=== PATIENT | male | born 1930 | race Caucasian/White ===

== ENCOUNTER 2020-09-05 11:31 | Inpatient (IN) | payer MEDICARE, OTHER ==
[2020-09-05] MEDS: SODIUM CHLORIDE 0.9% 1,000 ML IV STA ×2 (12:49→16:17)
[2020-09-05 13:12] LABS: Basophils # (A) 0.1 k/uL (0-0.2); Basophils % (A) 1 %; Eosinophils # (A) 0.3 k/uL (0-0.7); Eosinophils % (A) 3 %; HCT 44.5 % (39.0-53.0); HGB 15.1 gm/dL (13.0-17.5); Lymphocytes # (A) 1.3 k/uL (1.0-4.8); Lymphocytes % (A) 13 %; MCH 30.7 pg (25.0-35.0); MCV 90.3 fL (80.0-100.0); Mean Platelet Volume 7.7; Monocytes # (A) 0.6 k/uL (0-1.0); Monocytes % (A) 6 %; Neutrophils # (A) 7.3 k/uL (1.3-7.7); Neutrophils % (A) 76 %; Platelet Count 250 k/uL (150-450); RBC 4.93 m/uL (4.30-5.90); RDW 13.2 % (11.5-15.5); WBC 9.6 k/uL (3.8-10.6)
[2020-09-05 13:39] LABS: Albumin 3.4 g/dL (3.5-5.0); Calcium 10.4 mg/dL (8.4-10.2); Potassium 5.4 mmol/L (3.5-5.1); Total Bilirubin 1.2 mg/dL (0.2-1.3); Total Protein 6.6 g/dL (6.3-8.2)
[2020-09-05 14:01] LABS: INR 0.9 (<1.2); Partial Thromboplastin Time 22.3 sec (22.0-30.0); Prothrombin Time 9.9 sec (9.0-12.0)
--- NOTE | 2020-09-05 14:31 | CT ---
EXAMINATION TYPE: CT abdomen pelvis wo con DATE OF EXAM: 09/05/2020 COMPARISON: None HISTORY: Abdominal pain where tube site drains CT DLP: 1088.2 mGycm Examination of the solid and hollow viscera is limited given the lack of contrast. FINDINGS: LUNG BASES: No evidence for nodule. No evidence for infiltrate. LIVER/GB: Pigtail catheter noted to extend into the region of the gallbladder fossa. No evidence for abnormal collection. The gallbladder surgically absent. No space-occupying hepatic lesion. PANCREAS: No pancreatic mass identified. No inflammatory process seen. SPLEEN: No evidence for splenomegaly. No intrasplenic lesions seen. ADRENALS: No adrenal nodules identified. No evidence for thickening. KIDNEYS: No evidence for renal mass. No nephrolithiasis. No hydronephrosis. BOWEL: Appendix has a normal appearance. No evidence of bowel obstruction. No inflammatory process. S evere sigmoid diverticulosis without diverticulitis. Lymph nodes: No evidence for adenopathy greater than 1 cm. Abdominal aorta: Atheromatous changes seen. No evidence for aneurysm. Genital organs: No significant abnormality. Other: Right inguinal hernia which contains a portion of the urinary bladder. Ulnar fat-containing le ft inguinal hernia. IMPRESSION: 1.Pigtail catheter noted to extend into the region of the gallbladder fossa. No evidence for abnormal collection. The gallbladder surgically absent. 2.Right inguinal hernia which contains a portion of the urinary bladder. Ulnar fat-containing left in guinal hernia.
[2020-09-05] MEDS ORDERED: ONDANSETRON 4 MG/2 ML VIAL IVP PRN (14:55)
[2020-09-05] MEDS ORDERED: NALOXONE 0.4 MG/ML 1 ML VIAL IV PRN ×2 (14:55→16:25)
--- NOTE | 2020-09-05 14:55 | ED ---
General Adult HPI - General Chief complaint: Recheck/Abnormal Lab/Rx Stated complaint: pain at drainage tube site Time Seen by Provider: 09/05/20 12:08 Source: patient, RN notes reviewed Mode of arrival: wheelchair Limitations: no limitations - History of Present Illness Initial comments: Patient 89-year-old male presenting to the emergency room today with a chief complaint of right upper quadrant pain. He is met that approximately 3 weeks ago he was seen at [facility]. He does admit that he was told that he had a problem with his gallbladder. A drain was placed in because he was planning to move from the [facility] to this area. Patient states that they placed this drain to try to prolong surgery. Patient does admit that he has moved and was planning to follow with Dr. Quarles here. He does admit that over the last week she's been having increased pain and difficult time eating and drinking. He does admit that the pain is worse with this. He denies any other complaints or symptoms. Patient denies any recent fever, chills, shortness of breath, chest pain, back pain, abdominal pain, nausea or vomiting, headaches or visual changes, or any other complaints. - Related Data Home Medications Medication Instructions Recorded Confirmed Atorvastatin [Lipitor] 40 mg PO DAILY 09/05/20 09/05/20 Clopidogrel [Plavix] 75 mg PO DAILY 09/05/20 09/05/20 Montelukast [Singulair] 10 mg PO DAILY 09/05/20 09/05/20 Omeprazole 20 mg PO DAILY 09/05/20 09/05/20 amLODIPine [Norvasc] 5 mg PO DAILY 09/05/20 09/05/20 hydrOXYzine HCL [Atarax] 25 - 50 mg PO HS PRN 09/05/20 09/05/20 Allergies Allergy/AdvReac Type Severity Reaction Status Date / Time No Known Allergies Allergy Verified 09/05/20 13:51 Review of Systems ROS Statement: Those systems with pertinent positive or pertinent negative responses have been documented in the HPI. ROS Other: All systems not noted in ROS Statement are negative. Past Medical History Past Medical History: Hyperlipidemia, Hypertension, Pulmonary Embolus (PE) History of Any Multi-Drug Resistant Organisms: None Reported Additional Past Surgical History / Comment(s): drainage tube to gallbladder Past Psychological History: No Psychological Hx Reported Smoking Status: Former smoker Past Alcohol Use History: None Reported Past Drug Use History: None Reported General Exam - General Exam Comments Initial Comments: General: The patient is awake and alert, in no distress, and does not appear acutely ill. Eye: extra-ocular movements are intact. There is normal conjunctiva bilaterally. No signs of icterus. Ears, nose, mouth and throat: There are moist mucous membranes and no oral lesions. Neck: The neck is supple, there is no tenderness or JVD. Cardiovascular: There is a regular rate and rhythm. No murmur, rub or gallop is appreciated. Respiratory: Lungs are clear to auscultation, respirations are non-labored, breath sounds are equal. No wheezes, stridor, rales, or rhonchi. Gastrointestinal: Patient does have drain in the right upper quadrant. He does have some mild tenderness locally. No rebound, guarding. Musculoskeletal: Normal ROM, no tenderness. Strength 5/5. Sensation intact. Pulses equal bilaterally 2+. Neurological: A&O x 3. CN II-XII intact, There are no obvious motor or sensory deficits. Coordination appears grossly intact. Speech is normal. Skin: Skin is warm and dry and no rashes or lesions are noted. Psychiatric: Cooperative, appropriate mood & affect, normal judgment. Limitations: no limitations Course Vital Signs 09/05/20 11:36 Temperature 98.2 F Pulse Rate 97 Respiratory 18 Rate Blood Pressure 134/70 O2 Sat by Pulse 95 Oximetry Medical Decision Making - Medical Decision Making CT has been reviewed. This does show evidence of draining no gallbladder is visualized at this time. He does believe that he had previous scans that showed that he needed to have a gallbladder taken out and this is the reason that the place to drain. Patient labs been reviewed and does show elevated BUN/creatinine. Patient is having a difficult time eating and drinking at home as is increased pain due eats and drinks. He'll be admitted with consult to surgery. - Lab Data Result diagrams: 09/05/20 12:43 09/05/20 12:43 Lab Results 09/05/20 09/05/20 09/05/20 Range/Units 12:43 12:43 12:43 WBC 9.6 (3.8-10.6) k/uL RBC 4.93 (4.30-5.90) m/uL Hgb 15.1 (13.0-17.5) gm/dL Hct 44.5 (39.0-53.0) % MCV 90.3 (80.0-100.0) fL MCH 30.7 (25.0-35.0) pg MCHC 34.0 (31.0-37.0) g/dL RDW 13.2 (11.5-15.5) % Plt Count 250 (150-450) k/uL MPV 7.7 Neutrophils % 76 % Lymphocytes % 13 % Monocytes % 6 % Eosinophils % 3 % Basophils % 1 % Neutrophils # 7.3 (1.3-7.7) k/uL Lymphocytes # 1.3 (1.0-4.8) k/uL Monocytes # 0.6 (0-1.0) k/uL Eosinophils # 0.3 (0-0.7) k/uL Basophils # 0.1 (0-0.2) k/uL PT 9.9 (9.0-12.0) sec INR 0.9 (<1.2) APTT 22.3 (22.0-30.0) sec Sodium 138 (137-145) mmol/L Potassium 5.4 H (3.5-5.1) mmol/L Chloride 103 (98-107) mmol/L Carbon Dioxide 28 (22-30) mmol/L Anion Gap 7 mmol/L BUN 23 H (9-20) mg/dL Creatinine 1.75 H (0.66-1.25) mg/dL Est GFR (CKD-EPI)AfAm 39 (>60 ml/min/1.73 sqM) Est GFR (CKD-EPI)NonAf 34 (>60 ml/min/1.73 sqM) Glucose 119 H (74-99) mg/dL Calcium 10.4 H (8.4-10.2) mg/dL Total Bilirubin 1.2 (0.2-1.3) mg/dL AST 23 (17-59) U/L ALT 22 (4-49) U/L Alkaline Phosphatase 106 (38-126) U/L Total Protein 6.6 (6.3-8.2) g/dL Albumin 3.4 L (3.5-5.0) g/dL Amylase 75 (30-110) U/L Lipase 87 (23-300) U/L Disposition Clinical Impression: Abdominal pain, LIYA (acute kidney injury) Disposition: ADMITTED IP TO THIS HOSP Condition: Stable Is patient prescribed a controlled substance at d/c from ED?: No Referrals: None,Stated [Primary Care Provider] - 1-2 days Time of Disposition: 14:55
[2020-09-05] MEDS ORDERED: SODIUM CHLORIDE 0.9% 1,000 ML IV SCH (15:00)
[2020-09-05] MEDS ORDERED: hydrOXYzine HCL 25 MG TAB PO PRN (15:46)
[2020-09-05] MEDS ORDERED: MELATONIN 3 MG TABLET PO PRN (16:31)
[2020-09-05 16:34] LABS: Appearance,Urine Clear (Clear); Bilirubin,Urine Negative (Negative); Blood,Urine Negative (Negative); Color,Urine Yellow; Glucose,Urine (UA) Negative (Negative); Hyaline Casts,Urine 1 /lpf (0-2); Ketones,Urine Negative (Negative); Leukocyte Esterase,Urine Trace (Negative); Mucus,Urine Rare /hpf; Nitrite,Urine Negative (Negative); Protein,Urine 1+ (Negative); RBC,Urine 1 /hpf (0-5); Specific Gravity,Urine 1.021 (1.001-1.035); Squamous Epithelial Cell,Urine <1 /hpf (0-4); Urobilinogen,Urine <2.0 mg/dL (<2.0); WBC,Urine 5 /hpf (0-5)
--- NOTE | 2020-09-05 16:55 | P.HPIM ---
<Elijah Conti - Last Filed: 09/05/20 16:36> History of Present Illness H&P Date: 09/05/20 Chief Complaint: Abdominal Pain History of presenting illness: Patient is an 89-year-old male with a past medical history including hypertension, hyperlipidemia, PE not currently on anticoagulation, CVA on Plavix, and CKD. He presented to [facility]'s emergency department this afternoon with a chief complaint of right upper quadrant pain. Patient reports that approximately 3 weeks ago he was seen and evaluated at [facility] where he was informed that he had to have his gallbladder removed, but they were not able to do this there and needed to transfer him to another facility. Patient states at that time a drain was placed and since patient was in the process of moving to this area, he was instructed to follow-up with Dr. Del Castillo and has an appointment scheduled for September 13. Patient states the drain was placed to prolong the surgery, but states over the last week he's been having increased pain, a difficult time eating and drinking, nausea, and diarrhea. Patient reports this pain significantly increases with any oral intake. Patient denies having any noted fevers, chills, diaphoresis, episodes of vomiting, chest pain or palpitations, shortness of breath, difficulties with her changes in urinary function, and reports continued drainage from radha-tube/biliary-tube has been unchanged since placement 3 weeks ago. ED course: Patient was seen and fully evaluated in the emergency department resulting in admission to general medical unit where patient will receive continuous close medical management. CT abdomen and pelvis without contrast revealing a pigtail catheter noted to extend into the region of the gallbladder fossa no evidence for abnormal collection. The gallbladder surgically absent. Right inguinal hernia which contains a portion of the urinary bladder. On her fat-containing left inguinal hernia. Labs: CBC unremarkable. CMP revealing mild hyperkalemia with potassium of 5.4 and elevated renal function with BUN of 23, creatinine of 1.75 Assessment: Review of systems: Pertinent positives and negatives as discussed in HPI, a complete review of systems was performed and all other systems are negative. Physical exam: General: non toxic, no distress, appears at stated age Derm: warm, dry Head: atraumatic, normocephalic, symmetric Eyes: no lid lag, anicteric sclera Mouth: no lip lesion, mucus membranes moist Cardiovascular: S1S2 reg, murmur present, positive posterior tibial pulses bilaterally, 2+ bilateral lower extremity pitting edema. Lungs: CTA bilateral, no rhonchi, no rales , no accessory muscle use Abdominal: Obese abdomen, taught distended with tenderness to palpation throughout all 4 quadrants with guarding to right upper quadrant. Biliary drain in place with 150 mL of dark brown gastric drainage. Ext: no gross muscle atrophy, no contractures Neuro: CN II-XI grossly intact, no focal neuro deficits Psych: Alert, oriented, appropriate affect Plan of care: Right upper quadrant abdominal pain, acute cholecystitis with biliary tube in place -Consult to Gen. surgery, Dr. Quarles. -Consult to GI, Dr. Drummond. -Nothing by mouth, until cleared by general surgery. -Telemetry monitoring -Symptomatic care and pain management with Zofran as needed for nausea and morphine as needed for pain. -Gentle hydration with 0.9% normal saline at 75 miles per hour. -Continue close monitoring with repeat a.m. labs including CMP, lipase, and CBC. Acute kidney injury on chronic kidney disease with Hyperkalemia -CMP revealing mild hyperkalemia with potassium of 5.4 and elevated renal function with BUN of 23, creatinine of 1.75. -Unknown baseline levels, patient does report a history of CKD but no previous labs available for comparison at this time. -We will treat for acute kidney injury and provide pt with gentle hydration with 0.9% normal saline at 75 mL/hr. -Continue close monitoring of renal function with repeat a.m. labs. -Continue close monitoring of electrolytes. -Telemetry monitoring Hypertension -Monitor vital signs and continue daily medication management. Hyperlipidemia -Continue home daily medication management. History of the PE -DVT prophylaxis with heparin History of a CVA -Hold Plavix until cleared by GI and general surgery. -DVT prophylaxis with heparin The patient is admitted with an anticipated greater than 2 midnight stay for evaluation of right upper quadrant pain with acute cholecystitis. CODE STATUS:DO NOT RESUSCITATE/DO NOT INTUBATE DVT prophylaxis: Heparin Discussed with: Patient and his daughter, Anisha. Anticipated discharge date: 2-[address]: Home A total of 55 minutes was spent on the care of this complex patient more than 50% of the time was spent in counseling and care coordination. Past Medical History Past Medical History: Hyperlipidemia, Hypertension, Pulmonary Embolus (PE) History of Any Multi-Drug Resistant Organisms: None Reported Additional Past Surgical History / Comment(s): drainage tube to gallbladder Past Psychological History: No Psychological Hx Reported Smoking Status: Former smoker Past Alcohol Use History: None Reported Past Drug Use History: None Reported Medications and Allergies Home Medications Medication Instructions Recorded Confirmed Type Atorvastatin [Lipitor] 40 mg PO DAILY 09/05/20 09/05/20 History Clopidogrel [Plavix] 75 mg PO DAILY 09/05/20 09/05/20 History Montelukast [Singulair] 10 mg PO DAILY 09/05/20 09/05/20 History Omeprazole 20 mg PO DAILY 09/05/20 09/05/20 History amLODIPine [Norvasc] 5 mg PO DAILY 09/05/20 09/05/20 History hydrOXYzine HCL [Atarax] 25 - 50 mg PO HS PRN 09/05/20 09/05/20 History Allergies Allergy/AdvReac Type Severity Reaction Status Date / Time No Known Allergies Allergy Verified 09/05/20 13:51 Physical Exam Vitals: Vital Signs Temp Pulse Resp BP Pulse Ox 09/05/20 11:36 98.2 F 97 18 134/70 95 Intake and Output 09/05/20 09/05/20 09/05/20 06:59 14:59 22:59 Other: Weight 109.769 kg Results CBC & Chem 7: 09/05/20 12:43 09/05/20 12:43 Labs: Abnormal Lab Results - Last 24 Hours (Table) 09/05/20 Range/Units 12:43 Potassium 5.4 H (3.5-5.1) mmol/L BUN 23 H (9-20) mg/dL Creatinine 1.75 H (0.66-1.25) mg/dL Glucose 119 H (74-99) mg/dL Calcium 10.4 H (8.4-10.2) mg/dL Albumin 3.4 L (3.5-5.0) g/dL <Megan Burgos - Last Filed: 09/05/20 18:17> Past Medical History - Past Family History Mother Family Medical History: COPD Father Family Medical History: Coronary Artery Disease (CAD) Physical Exam Osteopathic Statement: *. No significant issues noted on an osteopathic struct ural exam other than those noted in the History and Physical/Consult. Vitals: Vital Signs Temp Pulse Resp BP Pulse Ox 09/05/20 16:25 98 09/05/20 16:16 101 H 18 133/89 94 L 09/05/20 11:36 98.2 F 97 18 134/70 95 Intake and Output 09/05/20 09/05/20 09/05/20 06:59 14:59 22:59 Other: Weight 109.769 kg 109.769 kg Results CBC & Chem 7: 09/05/20 12:43 09/05/20 12:43 Labs: Abnormal Lab Results - Last 24 Hours (Table) 09/05/20 09/05/20 Range/Units 12:43 12:43 Potassium 5.4 H (3.5-5.1) mmol/L BUN 23 H (9-20) mg/dL Creatinine 1.75 H (0.66-1.25) mg/dL Glucose 119 H (74-99) mg/dL Calcium 10.4 H (8.4-10.2) mg/dL Albumin 3.4 L (3.5-5.0) g/dL Urine Protein 1+ H (Negative) Ur Leukocyte Esterase Trace H (Negative) Urine Mucus Rare H (None) /hpf Assessment and Plan Assessment: Patient seen and examined independently. Patient was also seen by Elijah Conti NP and case was discussed. I am in agreement with subjective, physical exam, assessment and plan as written above and amended below. Patient seen and examined at bedside. All questions answered. 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 General: non toxic, mild distress due to pain, appears at stated age Derm: warm, dry Head: atraumatic, normocephalic, symmetric Eyes: EOMI, no lid lag, anicteric sclera Mouth: no lip lesion, mucus membranes moist Cardiovascular: S1S2 irreg, no murmur, positive posterior tibial pulse bilateral, + JVD Lungs: CTA bilateral, no rhonchi, no rales , no accessory muscle use Abdominal: soft, +tender to palpation diffusely, no guarding, no appreciable organomegaly Ext: no gross muscle atrophy, 3+edema, no contractures ABD pain with recent acute radha and biliary drain in place - out patient US from 08/19/20 showed continued stone in CBD, sludge, and + murphys signs, - zosyn - pain control, aniemetics, NPO until seen by surgery/GI - Await records from [facility], Agree with surgery and GI consult Irreg heart beat with lower extremity edema - Concern for A fib - Tele, EKG - CXR, BNP - if negative then stop norvasc - stop fluids at 1999, possible cardio renal syndrome - check echo
--- NOTE | 2020-09-05 18:28 | XR ---
EXAMINATION TYPE: XR chest 1V DATE OF EXAM: 09/05/2020 COMPARISON: NONE HISTORY: Right upper quadrant pain TECHNIQUE: Single view FINDINGS: There is mild coarsening of interstitial markings. There is no heart failure. Thoracic aort a is atheromatous. There is no definite pleural effusion. Heart size is normal. IMPRESSION: Mild pulmonary fibrotic changes. No heart failure.
[2020-09-05] MEDS: MORPHINE SULFATE 4 MG/ML SYRINGE IV PRN (21:17)
[2020-09-05] MEDS: PIPERACILLIN-TAZOBACTAM 3.375 GM in SODIUM CHLORIDE 0.9% 100 ML IVPB SCH (21:18)
[2020-09-05] MEDS: HEPARIN SODIUM,PORCINE 5,000 UNIT/ML 1 ML VIAL SQ SCH (23:29)
[2020-09-06] MEDS: MORPHINE SULFATE 4 MG/ML SYRINGE IV PRN ×2 (03:58→21:48)
[2020-09-06 06:19] LABS: HCT 40.8 % (39.0-53.0); HGB 13.7 gm/dL (13.0-17.5); MCH 30.7 pg (25.0-35.0); MCHC 33.6 g/dL (31.0-37.0); MCV 91.4 fL (80.0-100.0); Mean Platelet Volume 7.4; Neutrophils % (A) 68 %; Platelet Count 208 k/uL (150-450); RBC 4.46 m/uL (4.30-5.90); RDW 13.2 % (11.5-15.5)
[2020-09-06 06:20] LABS: Basophils # (A) 0.1 k/uL (0-0.2); Basophils % (A) 1 %; Eosinophils # (A) 0.5 k/uL (0-0.7); Eosinophils % (A) 7 %; Lymphocytes # (A) 1.2 k/uL (1.0-4.8); Lymphocytes % (A) 17 %; Monocytes # (A) 0.4 k/uL (0-1.0); Monocytes % (A) 6 %; Neutrophils # (A) 4.8 k/uL (1.3-7.7)
[2020-09-06] MEDS: HEPARIN SODIUM,PORCINE 5,000 UNIT/ML 1 ML VIAL SQ SCH ×2 (09:57→16:39)
[2020-09-06] MEDS: ATORVASTATIN 40 MG TAB PO SCH (09:57)
[2020-09-06] MEDS: amLODIPine 5 MG TAB PO SCH (09:57)
[2020-09-06] MEDS: PIPERACILLIN-TAZOBACTAM 3.375 GM in SODIUM CHLORIDE 0.9% 100 ML IVPB SCH ×2 (09:58→16:39)
[2020-09-06 10:14] LABS: African American GFR (CKD) 40.8 (60.0-200.0); Albumin 3.4 g/dL (3.80-4.90); Albumin/Globulin Ratio 1.79 (1.60-3.17); Anion Gap 7.5 mmol/L (4.00-12.00); BUN/Creat Ratio 12.35 Ratio (12.00-20.00); Calcium 9.8 mg/dL (8.7-10.3); Carbon Dioxide 26.5 mmol/L (21.6-31.8); Globulin 1.9 g/dL (1.6-3.3); Magnesium 1.9 mg/dL (1.5-2.4); Non-African American GFR(CKD) 35.2 (60.0-200.0); Potassium 4.9 mmol/L (3.5-5.5); Total Bilirubin 1.1 mg/dL (0.2-1.2); Total Protein 5.3 g/dL (6.2-8.2)
--- NOTE | 2020-09-06 11:30 | ECHOF ---
Referral Reason:chf MEASUREMENTS -------- HEIGHT: 182.9 cm WEIGHT: 109.8 kg BP: IVSd: 1.5 cm (0.6 - 1.1) LVIDd: 4.2 cm (3.9 - 5.3) LVPWd: 1.8 cm (0.6 - 1.1) IVSs: 2.0 cm LVIDs: 3.9 cm LVPWs: 1.3 cm LAESV Index (A-L): 29.49 ml/m Ao Diam: 3.9 cm (2.0 - 3.7) AV Cusp: 0.7 cm (1.5 - 2.6) MV EXCURSION: 11.714 mm (> 18.000) MV EF SLOPE: 86 mm/s (70 - 150) EPSS: 0.6 cm MV E Chivo: 0.62 m/s MV DecT: 215 ms MV A Chivo: 1.45 m/s MV E/A Ratio: 0.43 AV maxP.55 mmHg AV meanP.67 mmHg RAP: 5.00 mmHg RVSP: 19.33 mmHg FINDINGS -------- Sinus rhythm. This was a technically adequate study. The left ventricular size is normal. There is moderate concentric left ventricular hypertrophy. O verall left ventricular systolic function is normal with, an EF between 55 - 60 %. The right ventricle is normal in size. LA is midly dilated 29-33ml/m2. The right atrial size is normal. There is moderate aortic valve sclerosis. There is mild aortic stenosis present. Peak/mean gradie nt across the Aortic Valve is 30.55mmHg / 16.67mmHg. Mild mitral annular calcification present. Mild mitral regurgitation is present. The tricuspid valve appears structurally normal. Mild tricuspid regurgitation present. Right vent ricular systolic pressure is normal at < 35 mmHg. There is no pulmonic regurgitation present. The aortic root size is normal. Echo free space indicative of a pericardial fat pad. CONCLUSIONS -------- 1. There is moderate concentric left ventricular hypertrophy. 2. Overall left ventricular systolic function is normal with, an EF between 55 - 60 %. 3. LA is midly dilated 29-33ml/m2. 4. There is mild aortic stenosis present. 5. Peak/mean gradient across the Aortic Valve is 30.55mmHg / 16.67mmHg. 6. Mild mitral annular calcification present. 7. Mild mitral regurgitation is present. 8. Mild tricuspid regurgitation present. UX ENGINEER: Alisha Villa RDCS
--- NOTE | 2020-09-06 13:37 | US ---
EXAMINATION TYPE: US gallbladder DATE OF EXAM: 09/06/2020 COMPARISON: Correlation CT 09/05/2020 CLINICAL HISTORY: 89-year-old male RUQ pain. Inpatient has indwelling biliary drainage tube noted in gallbladder. Technique: Multiple sonographic images of the right upper quadrant are obtained. FINDINGS: EXAM MEASUREMENTS: Liver Length: 11.8 cm Gallbladder Wall: 0.4 cm CBD: 0.4 cm Right Kidney: 12.6 x 5.7 x 5.0 cm Wetland Scientist notes: US exam is technically limited by intercostal scanning with patient LLD as patient 's drainage tube and bandages are at RUQ. Pancreas: Only some of the pancreatic head is visualized. Remainder is obscured by bowel gas. Liver: hyperechoic periportal wall brightness is seen Gallbladder: parallel hyperechoic valenzuela of biliary drainage tube is seen in gallbladder near neck; w all thickness noted as is greater than 0.3cm, but limitations are present as A/P fundal wall not seen with intercostal scanning. Evidence for sonographic Rosales's sign: no CBD: wnl Right Kidney: A couple renal cysts are present, largest at the lower pole measuring 2.4 x 2.4 x 1.7c m; trace perinephric fluid can be seen with chronic medical renal disease. No hydronephrosis. IMPRESSION: 1. Exam limited by intercostal scanning given the patient's drainage tube and dressing overlying the right upper quadrant. Drainage tube is seen to extend into the gallbladder. Only a small portion of t he gallbladder could be visualized and appears mostly collapsed with mild wall thickening of 4 mm. No surrounding abnormal fluid collection. 2. No biliary ductal dilatation.
--- NOTE | 2020-09-06 15:06 | P.PN ---
Subjective Progress Note Date: 09/06/20 History of presenting illness: Patient is an 89-year-old male with a past medical history including hypertension, hyperlipidemia, PE not currently on anticoagulation, CVA on Plavix, and CKD. He presented to [facility]'s emergency department this afternoon with a chief complaint of right upper quadrant pain. Patient reports that approximately 3 weeks ago he was seen and evaluated at [facility] where he was informed that he had to have his gallbladder removed, but they were not able to do this there and needed to transfer him to another facility. Patient states at that time a drain was placed and since patient was in the process of moving to this area, he was instructed to follow-up with Dr. Del Castillo and has an appointment scheduled for September 13. Patient states the drain was placed to prolong the surgery, but states over the last week he's been having increased pain, a difficult time eating and drinking, nausea, and diarrhea. Patient reports this pain significantly increases with any oral intake. CT abdomen and pelvis without contrast revealing a pigtail catheter noted to extend into the region of the gallbladder fossa no evidence for abnormal collection. The gallbladder surgically absent. Right inguinal hernia which contains a portion of the urinary bladder. On her fat-containing left inguinal hernia. Gallbladder Ultrasound completed revealing only a small portion of the gallbladder was visualized and appeared mostly collapsed with mild wall thickening of 4 mm with no surrounding abnormal fluid collection and no biliary ductal dilation. Chest x-ray revealing mild pulmonary fibrotic changes. No acute cardiopulmonary process. Echocardiogram revealed moderate LVH with a preserved ejection fraction 55-60% and mild aortic stenosis and mild mitral annular calcification present. Labs: CBC unremarkable. CMP revealing mild hyperkalemia with potassium of 5.4 and elevated renal function with BUN of 23, creatinine of 1.75 Assessment: Patient was seen and fully evaluated at the bedside. Reports he is feeling slightly better and that the nausea has resided but continues to have persistent diffuse abdominal pain. Patient denies any chest pain, palpitations, shortness of breath, nausea, vomiting, diarrhea, or any changes in biliary drainage. Physical exam: General: non toxic, no distress, appears at stated age Derm: warm, dry Head: atraumatic, normocephalic, symmetric Eyes: no lid lag, anicteric sclera Mouth: no lip lesion, mucus membranes moist Cardiovascular: S1S2 reg, murmur present, positive posterior tibial pulses bilaterally, 2+ bilateral lower extremity pitting edema. Lungs: CTA bilateral, no rhonchi, no rales , no accessory muscle use Abdominal: Obese abdomen, soft distended with tenderness to palpation throughout all 4 quadrants with guarding to right upper quadrant. Biliary drain in place with dark brown gastric drainage. Ext: no gross muscle atrophy, no contractures Neuro: CN II-XI grossly intact, no focal neuro deficits Psych: Alert, oriented, appropriate affect Plan of care: Right upper quadrant abdominal pain, acute cholecystitis with biliary tube in place -General surgery following, Dr. Quarles. Appreciate recommendations. -GI following, Dr. Drummond. Appreciate recommendations. -Gallbladder Ultrasound completed revealing only a small portion of the gallbladder was visualized and appeared mostly collapsed with mild wall thickening of 4 mm with no surrounding abnormal fluid collection and no biliary ductal dilation. -Diet was advanced to clear liquids, patient tolerating well. -Telemetry monitoring -Symptomatic care and pain management with Zofran as needed for nausea and morphine as needed for pain. -Continue IV antibiotic Zosyn -Continue to hold Plavix until cleared by general surgery. -CBC remains unremarkable. BMP consistent with patient's PCKD with BUN 21.0, creatinine 1.7 and GFR of 35.2. Liver profile and lipase normal findings. Chronic kidney disease stage III -BMP consistent with patient's PCKD with BUN 21.0, creatinine 1.7 and GFR of 35.2. Hyperkalemia, secondary to elevated renal function, resolved. Hypertension -Monitor vital signs and continue daily medication management. Hyperlipidemia -Continue home daily medication management. History of the PE -DVT prophylaxis with heparin History of a CVA -Hold Plavix until cleared by GI and general surgery. -DVT prophylaxis with heparin CODE STATUS:DO NOT RESUSCITATE/DO NOT INTUBATE DVT prophylaxis: Heparin Discussed with: Patient. Anticipated discharge date: 2-[address]: Home A total of 45 minutes was spent on the care of this complex patient more than 50% of the time was spent in counseling and care coordination. Objective - Vital Signs Vital signs: Vital Signs Temp 98.1 F 09/06/20 05:00 Pulse 80 09/06/20 05:00 Resp 18 09/06/20 05:00 BP 125/55 09/06/20 05:00 Pulse Ox 92 L 09/06/20 05:00 Intake & Output 09/05/20 09/06/20 09/06/20 18:59 06:59 18:59 Intake Total 240 300 Output Total 800 800 Balance -560 -500 Weight 109.769 kg Intake: Oral 240 300 Output: Urine 800 800 Other: # Voids 1 - Labs CBC & Chem 7: 09/06/20 05:33 09/06/20 05:33 Labs: Abnormal Lab Results - Last 24 Hours (Table) 09/05/20 09/05/20 09/06/20 Range/Units 12:43 12:43 05:33 Potassium 5.4 H (3.5-5.1) mmol/L BUN 23 H (9-20) mg/dL Creatinine 1.75 H 1.7 H (0.66-1.25) mg/dL Est GFR (CKD-EPI)AfAm 40.8 L (60.0-200.0) Est GFR (CKD-EPI)NonAf 35.2 L (60.0-200.0) Glucose 119 H (74-99) mg/dL Calcium 10.4 H (8.4-10.2) mg/dL Total Protein 5.3 L (6.2-8.2) g/dL Albumin 3.4 L 3.40 L (3.5-5.0) g/dL Urine Protein 1+ H (Negative) Ur Leukocyte Esterase Trace H (Negative) Urine Mucus Rare H (None) /hpf
--- NOTE | 2020-09-06 15:51 | P.GSCN ---
History of Present Illness Consult date: 09/06/20 History of present illness: CHIEF COMPLAINT: Abdominal pain HISTORY OF PRESENT ILLNESS: This is a 89-year-old male with a known history of hypertension, hyperlipidemia, PE not currently on anticoagulation, CVA on Plavix and chronic kidney disease. Patient reports that he fell about 3 weeks ago hitting his right side and rib cage. He had tripped over boxes. He has been in the process of moving. He had been living up in the [facility]. And he went to a hospital in the [facility] where he had a CAT scan and was told then that he had gallbladder problem and bruised ribs. He then had gone to [facility] for follow-up on his gallbladder. Per patient he was seen by a surgeon however patient did not want to stay for surgery because he was in the process of moving. Therefore he had a biliary drain placed. He was then told to follow-up with Dr. Quarles outpatient in the beginning of September. However, patient's right upper quadrant pain continued to worsen. He was having nausea and unable to eat. His pain did get worse after eating. Patient denies any fever chills or sweats. Denies any bowel movement changes or urinary symptoms. PAST MEDICAL HISTORY: See list. PAST SURGICAL HISTORY: See list. MEDICATIONS: See list. ALLERGIES: See list. SOCIAL HISTORY: No illicit drug use. REVIEW OF SYSTEMS: CONSTITUTIONAL: Denies fever or chills. HEENT: Denies blurred vision, vision changes, or eye pain. Denies hemoptysis ENDOCRINE: Denies heat or cold intolerance. CARDIOVASCULAR: Denies chest pain or pressure. RESPIRATORY: No shortness of breath. GASTROINTESTINAL: Denies abdominal pain. Denies nausea or vomiting. NEURO: Denies history of seizures. PSYCH: No depression or suicidal ideation HEMATOLOGIC: Denies bleeding disorders. LYMPHATIC: The patient denies any lumps and bumps around the neck. GENITOURINARY: Denies any blood in urine or increased urinary frequency. MUSCULOSKELETAL: Denies myalgias. Denies joint swelling. Denies decreased range of motion beyond patients baseline. SKIN: Denies pruitis. Denies rash. PHYSICAL EXAM: VITAL SIGNS: Reviewed GENERAL: Well-developed in no acute distress. HEENT: No sclera icterus. Extraocular movements grossly intact. Moist buccal mucosa. Head is atraumatic, normocephalic. Hears conversational speech. No nasal drainage. NECK: Supple without lymphadenopathy. CHEST: Non-labored respirations and equal bilateral excursions. CARDIOVASCULAR: Palpable 2+ radial pulses. ABDOMEN: Soft. Nondistended. Tenderness with palpation of the right upper q uadrant. Patient has biliary drain with greenish brownish fluid MUSCULOSKELETAL: No clubbing or cyanosis. NEUROLOGIC: No focal or lateralizing signs. Cranial nerves II through XII grossly intact. PSYCH: Appropriate affect. Alert and oriented to person, place and time. SKIN: Well perfused. Good skin turgor. LABORATORY DATA: WBC 7 Hgb 13.7 creatinine 1.7 LFTs normal lipase normal UA no evidence of infection IMAGING: Computed tomography scan abdomen and pelvis pigtail catheter noted to extend into the region of the gallbladder fossa. No evidence for abnormal collection. Right he will hernia which contains a portion of the urinary bladder. All are fat-containing left inguinal hernia Abdominal ultrasound exam limited by intracostal scanning giving the patient's drainage tube and dressing overlying the right upper quadrant. Drainage tube is seen to extend into the gallbladder. Only a small portion of the gallbladder could be visualized and appears mostly collapsed with mild wall thickening of 4 mm. No surrounding abnormal fluid collection. No biliary ductal dilation ASSESSMENT: 1. Right upper quadrant abdominal pain 2. Acute cholecystitis with biliary drain 3. Hypertension 4. Hyperkalemia resolved 5. History of chronic kidney disease 6. History of CVA, Plavix currently on hold PLAN: -Okay for clear liquid diet -Continue IV antibiotics -Continue to hold Plavix -Further recommendations forthcoming per surgeon Thank you for this consultation Physician [employer] note has been reviewed by physician. Signing provider agrees with the documented findings, assessment, and plan of care. Past Medical History Past Medical History: Hyperlipidemia, Hypertension, Pulmonary Embolus (PE) History of Any Multi-Drug Resistant Organisms: None Reported Additional Past Surgical History / Comment(s): drainage tube to gallbladder Past Psychological History: No Psychological Hx Reported Smoking Status: Former smoker Past Alcohol Use History: None Reported Past Drug Use History: None Reported - Past Family History Mother Family Medical History: COPD Father Family Medical History: Coronary Artery Disease (CAD) Medications and Allergies Home Medications Medication Instructions Recorded Confirmed Type Atorvastatin [Lipitor] 40 mg PO DAILY 09/05/20 09/05/20 History Clopidogrel [Plavix] 75 mg PO DAILY 09/05/20 09/05/20 History Montelukast [Singulair] 10 mg PO DAILY 09/05/20 09/05/20 History Omeprazole 20 mg PO DAILY 09/05/20 09/05/20 History amLODIPine [Norvasc] 5 mg PO DAILY 09/05/20 09/05/20 History hydrOXYzine HCL [Atarax] 25 - 50 mg PO HS PRN 09/05/20 09/05/20 History Allergies Allergy/AdvReac Type Severity Reaction Status Date / Time No Known Allergies Allergy Verified 09/05/20 13:51 Surgical - Exam Vital Signs Temp Pulse Resp BP Pulse Ox 98.2 F 97 18 134/70 95 09/05/20 11:36 09/05/20 11:36 09/05/20 11:36 09/05/20 11:36 09/05/20 11:36 Results - Labs 09/06/20 05:33 09/06/20 05:33 Abnormal Lab Results - Last 24 Hours (Table) 09/05/20 09/06/20 Range/Units 12:43 05:33 Creatinine 1.7 H (0.6-1.5) mg/dL Est GFR (CKD-EPI)AfAm 40.8 L (60.0-200.0) Est GFR (CKD-EPI)NonAf 35.2 L (60.0-200.0) Total Protein 5.3 L (6.2-8.2) g/dL Albumin 3.40 L (3.80-4.90) g/dL Urine Protein 1+ H (Negative) Ur Leukocyte Esterase Trace H (Negative) Urine Mucus Rare H (None) /hpf Diabetes panel 09/06/20 Range/Units 05:33 Sodium 142 (135-145) mmol/L Potassium 4.9 (3.5-5.5) mmol/L Chloride 108 (96-109) mmol/L Carbon Dioxide 26.5 (21.6-31.8) mmol/L BUN 21.0 (9.0-27.0) mg/dL Creatinine 1.7 H (0.6-1.5) mg/dL Glucose 88 (70-110) mg/dL Calcium 9.8 (8.7-10.3) mg/dL AST 15 (14-35) U/L ALT 18 (10-49) U/L Alkaline Phosphatase 85 (41-126) U/L Total Protein 5.3 L (6.2-8.2) g/dL Albumin 3.40 L (3.80-4.90) g/dL Calcium panel 09/06/20 Range/Units 05:33 Calcium 9.8 (8.7-10.3) mg/dL Albumin 3.40 L (3.80-4.90) g/dL Pituitary panel 09/06/20 Range/Units 05:33 Sodium 142 (135-145) mmol/L Potassium 4.9 (3.5-5.5) mmol/L Chloride 108 (96-109) mmol/L Carbon Dioxide 26.5 (21.6-31.8) mmol/L BUN 21.0 (9.0-27.0) mg/dL Creatinine 1.7 H (0.6-1.5) mg/dL Glucose 88 (70-110) mg/dL Calcium 9.8 (8.7-10.3) mg/dL Adrenal panel 09/06/20 Range/Units 05:33 Sodium 142 (135-145) mmol/L Potassium 4.9 (3.5-5.5) mmol/L Chloride 108 (96-109) mmol/L Carbon Dioxide 26.5 (21.6-31.8) mmol/L BUN 21.0 (9.0-27.0) mg/dL Creatinine 1.7 H (0.6-1.5) mg/dL Glucose 88 (70-110) mg/dL Calcium 9.8 (8.7-10.3) mg/dL Total Bilirubin 1.1 (0.2-1.2) mg/dL AST 15 (14-35) U/L ALT 18 (10-49) U/L Alkaline Phosphatase 85 (41-126) U/L Total Protein 5.3 L (6.2-8.2) g/dL Albumin 3.40 L (3.80-4.90) g/dL
--- NOTE | 2020-09-06 23:42 | P.CONS ---
History of Present Illness - Reason for Consult Consult date: 09/06/20 [place] Requesting physician: Megan Burgos - Chief Complaint Abdominal pain - History of Present Illness 89-year-old male with multiple medical comorbidities including hypertension, hyperlipidemia, prior pulmonary embolism, CVA on Plavix therapy and chronic kidney disease who presented to the hospital for evaluation of abdominal pain. The patient had reported pain in the right upper quadrant of his abdomen. Previously the patient had been seen at an outside hospital at which time he reports he was treated for gallbladder disease, and the patient had a cholecy stostomy tube placed. At that time recommendations were for surgical intervention, however the patient reports that he was unwilling to undergo the surgery as he was in the middle of a move. He presents back to the hospital with worsening pain in the right upper quadrant of his abdomen with associated nausea and decreased oral intake. He denies any signs or symptoms of GI bleeding. Laboratory evaluation on presentation significant for an INR of 0.9, WBC 7, hemoglobin 13.7, platelet count 208,000, total bilirubin 1.2, alkaline phosphatase 104, AST 23 and ALTs 22. Ultrasound of the abdomen performed in evaluation significant for a drainage tube which is seen extending into the gallbladder with a small area of the gallbladder visualized with mild wall thickening of 4 mm with no abnormal surrounding fluid collection or biliary ductal dilation. Currently outside records have been requested but has not yet been received. Review of Systems REVIEW OF SYSTEMS: CONSTITUTIONAL: Denies any fevers, chills, weight change or fatigue. CARDIOVASCULAR: Denies any chest pain, palpitations high or low blood pressures RESPIRATORY: Denies any shortness of breath, hemoptysis or cough. GENITOURINARY: No dysuria or hematuria. MUSCULOSKELETAL: No weakness reported. SKIN: Denies any new rashes or lesions, jaundice or pallor. PSYCHIATRIC: Denies any depression or anxiety. NEUROLOGY: Denies headache, denies any new focal deficits. EARS/NOSE/THROAT: No recent hearing change, congestion, nasal discharge or sore throat. EYES: No pain in eyes, discharge or change in vision. GASTROINTESTINAL: As per HPI. Past Medical History Past Medical History: Hyperlipidemia, Hypertension, Pulmonary Embolus (PE) History of Any Multi-Drug Resistant Organisms: None Reported Additional Past Surgical History / Comment(s): drainage tube to gallbladder Past Psychological History: No Psychological Hx Reported Smoking Status: Former smoker Past Alcohol Use History: None Reported Past Drug Use History: None Reported - Past Family History Mother Family Medical History: COPD Father Family Medical History: Coronary Artery Disease (CAD) Medications and Allergies Home Medications Medication Instructions Recorded Confirmed Type Atorvastatin [Lipitor] 40 mg PO DAILY 09/05/20 09/05/20 History Clopidogrel [Plavix] 75 mg PO DAILY 09/05/20 09/05/20 History Montelukast [Singulair] 10 mg PO DAILY 09/05/20 09/05/20 History Omeprazole 20 mg PO DAILY 09/05/20 09/05/20 History amLODIPine [Norvasc] 5 mg PO DAILY 09/05/20 09/05/20 History hydrOXYzine HCL [Atarax] 25 - 50 mg PO HS PRN 09/05/20 09/05/20 History Allergies Allergy/AdvReac Type Severity Reaction Status Date / Time No Known Allergies Allergy Verified 09/05/20 13:51 Physical Exam Vitals: Vital Signs Temp Pulse Pulse Pulse Resp BP BP 09/06/20 13:55 97.7 F 09/06/20 13:27 97.1 F L 92 16 147/83 09/06/20 05:00 98.1 F 80 18 09/05/20 20:00 98.1 F 75 18 09/05/20 16:25 09/05/20 16:16 101 H 18 133/89 BP Pulse Ox 09/06/20 13:55 09/06/20 13:27 94 L 09/06/20 05:00 125/55 92 L 09/05/20 20:00 147/76 94 L 09/05/20 16:25 98 09/05/20 16:16 94 L Intake and Output 09/05/20 09/06/20 09/06/20 22:59 06:59 14:59 Intake Total 240 300 Output Total 1600 Balance -1360 300 Intake: Oral 240 300 Output: Urine 1600 Other: # Voids 1 Weight 109.769 kg On physical examination, patient appears comfortable in no apparent distress. HEAD: Normocephalic, atraumatic. EYES: No scleral icterus. No conjunctival injection. MOUTH: No lesions, tongue midline. NECK: Trachea midline, no gross abnormalities. CHEST: Clear to auscultation with no wheezing or rhonchi appreciated. HEART: S1-S2 appreciated. ABDOMEN: Soft, obese, and moderately tender to palpation with external cholecystostomy tube noted with the area clean/dry and intact. Bowel sounds are positive. No organomegaly. No guarding or rigidity. EXTREMITIES: No pedal edema. SKIN: No rashes, no jaundice. NEUROLOGIC: Alert and oriented x3. No focal deficits. Results CBC & Chem 7: 09/06/20 05:33 09/06/20 05:33 Labs: Abnormal Lab Results - Last 24 Hours (Table) 09/05/20 09/06/20 Range/Units 12:43 05:33 Creatinine 1.7 H (0.6-1.5) mg/dL Est GFR (CKD-EPI)AfAm 40.8 L (60.0-200.0) Est GFR (CKD-EPI)NonAf 35.2 L (60.0-200.0) Total Protein 5.3 L (6.2-8.2) g/dL Albumin 3.40 L (3.80-4.90) g/dL Urine Protein 1+ H (Negative) Ur Leukocyte Esterase Trace H (Negative) Urine Mucus Rare H (None) /hpf US - abdomen: report reviewed (Ultrasound of the abdomen performed in evaluation significant for a drainage tube which is seen extending into the gallbladder with a small area of the gallbladder visualized with mild wall thickening of 4 mm with no abnormal surrounding fluid collection or biliary ductal dilation. ) Assessment and Plan (1) Acute cholecystitis Narrative/Plan: 82-year-old male with multiple medical comorbidities presenting to the hospital for complaints of right upper quadrant abdominal pain. History is been taken in discussion with the patient and on review of the electronic medical record, however outside records regarding patient's recent hospitalization have been requested and are still pending. Based on the history the patient was likely admitted at that time for acute cholecystitis and was not agreeable to cholecystectomy due to the fact that he was in the middle of the move. At that time patient had external cholecystostomy tube placed. Currently he has been admitted and is receiving broad-spectrum antibiotic therapy. Ultrasound of the abdomen performed in evaluation negative for any biliary dilation and somewhat limited due to the cholecystostomy tube with gallbladder wall thickening noted. No ductal dilation or elevation in liver enzymes to suggest choledocholithiasis at this time. Current Visit: Yes Status: Acute Code(s): K81.0 - ACUTE CHOLECYSTITIS SNOMED Code(s): 04947060 (2) Right upper quadrant pain Current Visit: Yes Status: Acute Code(s): R10.11 - RIGHT UPPER QUADRANT PAIN SNOMED Code(s): 771849175 Plan: Supportive care Okay for liquid diet Continue monitor CBC, BMP and LFTs Continue broad-spectrum antibiotic therapy Surgical service consult that, await the recommendations No plan for ERCP at this time with no evidence of choledocholithiasis on imaging and with normal liver enzymes Thank you for allowing us to participate in the care of the patient we will continue to follow
[2020-09-07] MEDS: HEPARIN SODIUM,PORCINE 5,000 UNIT/ML 1 ML VIAL SQ SCH ×3 (01:39→16:03)
[2020-09-07] MEDS: PIPERACILLIN-TAZOBACTAM 3.375 GM in SODIUM CHLORIDE 0.9% 100 ML IVPB SCH ×3 (01:39→16:02)
[2020-09-07 05:14] LABS: HCT 39.6 % (39.0-53.0); HGB 13.5 gm/dL (13.0-17.5); MCH 30.9 pg (25.0-35.0); MCHC 34.1 g/dL (31.0-37.0); MCV 90.5 fL (80.0-100.0); Mean Platelet Volume 7.3; Platelet Count 192 k/uL (150-450); RBC 4.37 m/uL (4.30-5.90); RDW 13.2 % (11.5-15.5); WBC 7.5 k/uL (3.8-10.6)
[2020-09-07] MEDS: amLODIPine 5 MG TAB PO SCH (09:40)
[2020-09-07] MEDS: ATORVASTATIN 40 MG TAB PO SCH (09:40)
[2020-09-07 09:46] LABS: African American GFR (CKD) 43.9 (60.0-200.0); Albumin 3.3 g/dL (3.80-4.90); Albumin/Globulin Ratio 1.74 (1.60-3.17); Anion Gap 6.5 mmol/L (4.00-12.00); BUN/Creat Ratio 11.88 Ratio (12.00-20.00); Calcium 9.4 mg/dL (8.7-10.3); Carbon Dioxide 27.5 mmol/L (21.6-31.8); Globulin 1.9 g/dL (1.6-3.3); Non-African American GFR(CKD) 37.9 (60.0-200.0); Potassium 4.6 mmol/L (3.5-5.5); Total Protein 5.2 g/dL (6.2-8.2)
--- NOTE | 2020-09-07 12:33 | US ---
EXAMINATION TYPE: US venous doppler duplex LE LT DATE OF EXAM: 09/07/2020 12:26 PM COMPARISON: NONE CLINICAL HISTORY: left lower extremity edema. Left leg swelling, no h/o dvt SIDE PERFORMED: Left TECHNIQUE: The lower extremity deep venous system is examined utilizing real time linear array sonog cynthia with graded compression, doppler sonography and color-flow sonography. VESSELS IMAGED: Common Femoral Vein Deep Femoral Vein Greater Saphenous Vein * Femoral Vein Popliteal Vein Small Saphenous Vein * Proximal Calf Veins (* superficial vessels) Left Leg: Negative for DVT Grayscale, color doppler, spectral doppler imaging performed of the deep veins of the left lower extr emity. There is normal flow, compressibility, vascular waveforms. IMPRESSION: No ultrasound evidence for acute DVT in the left lower extremity.
--- NOTE | 2020-09-07 12:41 | P.PN ---
Subjective Progress Note Date: 09/07/20 Patient seen and evaluated. US of gallbladder reviewed with drain in gallbladder. Bilious drainage noted from bag. RUQ without peritonitis. He is on plavix. Ideally 7 to 10 days from Plavix to decrease risk for bleeding is advised. Patient is elevated risk for bleeding complications with current complicated cholecystits. Options reviewed of surgical intervention inpatient Saturday described versus outpatient for Saturday reviewed. Objective - Vital Signs Vital signs: Vital Signs Temp 98.1 F 09/07/20 08:21 Pulse 80 09/07/20 08:31 Resp 18 09/07/20 08:31 BP 134/71 09/07/20 08:21 Pulse Ox 94 L 09/07/20 08:21 Intake & Output 09/06/20 09/07/20 09/07/20 18:59 06:59 18:59 Intake Total 400 Output Total 150 225 Balance 250 -225 Intake: Oral 400 Output: Drainage 150 225 Left Lower Abdomen 150 225 Other: Voiding Method Urinal Incontinent # Voids 2 3 - Labs CBC & Chem 7: 09/07/20 04:59 09/07/20 04:59 Labs: Abnormal Lab Results - Last 24 Hours (Table) 09/07/20 Range/Units 04:59 Creatinine 1.6 H (0.6-1.5) mg/dL Est GFR (CKD-EPI)AfAm 43.9 L (60.0-200.0) Est GFR (CKD-EPI)NonAf 37.9 L (60.0-200.0) BUN/Creatinine Ratio 11.88 L (12.00-20.00) Ratio Total Protein 5.2 L (6.2-8.2) g/dL Albumin 3.30 L (3.80-4.90) g/dL
--- NOTE | 2020-09-07 12:59 | P.PN ---
Subjective Progress Note Date: 09/07/20 Principal diagnosis: Right upper quadrant pain Patient seen and examined sitting in bed. Without any acute changes through the night. He states his abdominal pain has improved. He denies any nausea or vomiting. His biliary drain is intact with bile in bag. Objective - Vital Signs Vital signs: Vital Signs Temp 98.1 F 09/07/20 08:21 Pulse 80 09/07/20 08:21 Resp 18 09/07/20 08:21 BP 134/71 09/07/20 08:21 Pulse Ox 94 L 09/07/20 08:21 Intake & Output 09/06/20 09/07/20 09/07/20 18:59 06:59 18:59 Intake Total 400 Output Total 150 225 Balance 250 -225 Intake: Oral 400 Output: Drainage 150 225 Left Lower Abdomen 150 225 Other: # Voids 2 3 - Exam General appearance: The patient is alert, oriented, in no acute distress. HET: Head is normocephalic and atraumatic. Conjunctiva pink. Sclera anicteric. Neck: Supple without lymphadenopathy. Abdomen: Soft, right upper quadrant and epigastric tenderness, nondistended with bowel sounds. No guarding or rigidity. Extremities: Normal skin color and turgor. No pedal edema Neurological: No focal deficits. Alert and oriented 3. - Labs CBC & Chem 7: 09/07/20 04:59 09/07/20 04:59 Labs: Abnormal Lab Results - Last 24 Hours (Table) 09/06/20 09/07/20 Range/Units 05:33 04:59 Creatinine 1.7 H 1.6 H (0.6-1.5) mg/dL Est GFR (CKD-EPI)AfAm 40.8 L 43.9 L (60.0-200.0) Est GFR (CKD-EPI)NonAf 35.2 L 37.9 L (60.0-200.0) BUN/Creatinine Ratio 11.88 L (12.00-20.00) Ratio Total Protein 5.3 L 5.2 L (6.2-8.2) g/dL Albumin 3.40 L 3.30 L (3.80-4.90) g/dL Assessment and Plan (1) Acute cholecystitis Narrative/Plan: 82-year-old male with multiple medical comorbidities presenting to the hospital for complaints of right upper quadrant abdominal pain. History is been taken in discussion with the patient and on review of the electronic medical record, how ever outside records regarding patient's recent hospitalization have been requested and are still pending. Based on the history the patient was likely admitted at that time for acute cholecystitis and was not agreeable to cholecystectomy due to the fact that he was in the middle of the move. At that time patient had external cholecystostomy tube placed. Currently he has been admitted and is receiving broad-spectrum antibiotic therapy. Ultrasound of the abdomen performed in evaluation negative for any biliary dilation and somewhat limited due to the cholecystostomy tube with gallbladder wall thickening noted. No ductal dilation or elevation in liver enzymes to suggest choledocholithiasis at this time. Current Visit: Yes Status: Acute Code(s): K81.0 - ACUTE CHOLECYSTITIS SNOMED Code(s): 22914551 (2) Right upper quadrant pain Current Visit: Yes Status: Acute Code(s): R10.11 - RIGHT UPPER QUADRANT PAIN SNOMED Code(s): 722676495 Plan: Supportive care Okay for liquid diet Continue monitor CBC, BMP and LFTs Continue broad-spectrum antibiotic therapy Surgical service on consult, and plan is for cholecystectomy No plan for ERCP at this time with no evidence of choledocholithiasis on imaging and with normal liver enzymes Records from [facility] Thank you for allowing us to participate in the care of the patient we will be on stand by, call if needed Dr. Drummond I agree with the dictator's note, documented as a scribe by Angely Saldana.
--- NOTE | 2020-09-07 14:05 | P.PN ---
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 He presented to [facility]'s emergency department this afternoon with a chief complaint of right upper quadrant pain. Patient reports that approximately 3 weeks ago he was seen and evaluated at [facility] where he was informed that he had to have his gallbladder removed, but they were not able to do this there and needed to transfer him to another facility. Patient states at that time a drain was placed and since patient was in the process of moving to this area, he was instructed to follow-up with Dr. Del Castillo and has an appointment scheduled for September 13. Patient states the drain was placed to prolong the surgery, but states over the last week he's been having increased pain, a difficult time eating and drinking, nausea, and diarrhea. Patient reports this pain significantly increases with any oral intake. Physical exam: Patient was seen and fully evaluated at the bedside. Reports he is having significant nausea this morning and relates this to the beef broth he consumed for dinner last night. Patient states pain remains in right upper quadrant, epigastric region, and left upper quadrant that is tolerable at this time. Patient continues to deny having any chest pain, palpitations, shortness of breath, nausea, vomiting, diarrhea, or any changes in biliary drainage. Vital signs reviewed. Labs CBC unremarkable and BMP consistent with patient's stage III CKD. General: non toxic, no distress, appears at stated age Derm: warm, dry Head: atraumatic, normocephalic, symmetric Eyes: no lid lag, anicteric sclera Mouth: no lip lesion, mucus membranes moist Cardiovascular: S1S2 reg, murmur present, positive posterior tibial pulses bilaterally, 2+ left lower extremity pitting edema, no edema this morning to RLE. Lungs: CTA bilateral, no rhonchi, no rales , no accessory muscle use Abdominal: Obese abdomen, soft distended with tenderness to palpation throughout all 4 quadrants with guarding to right upper quadrant. Biliary drain in place with dark brown gastric drainage. Ext: no gross muscle atrophy, no contractures Neuro: CN II-XI grossly intact, no focal neuro deficits Psych: Alert, oriented, appropriate affect Assessment and Plan of Care: Right upper quadrant abdominal pain, acute cholecystitis with biliary tube in place -General surgery following, Dr. Quarles. General surgery recommending continuing antibiotic and holding Plavix for further surgical recommendations. Appreciate recommendations. -GI following, Dr. Drummond. Appreciate recommendations. -Gallbladder Ultrasound completed revealing only a small portion of the gallbladder was visualized and appeared mostly collapsed with mild wall thickening of 4 mm with no surrounding abnormal fluid collection and no biliary ductal dilation. -Diet was advanced to clear liquids, patient tolerating well. -Telemetry monitoring -Symptomatic care and pain management with Zofran as needed for nausea and morphine as needed for pain. -Continue IV antibiotic Zosyn -Continue to hold Plavix until cleared by general surgery. -CBC remains unremarkable. BMP consistent with patient's PCKD with BUN 21.0, creatinine 1.7 and GFR of 35.2. Liver profile and lipase normal findings. Chronic kidney disease stage III -BMP consistent with patient's CKD with BUN 19.0, creatinine 1.6, and GFR of 37.9. Hyperkalemia, secondary to elevated renal function, resolved. Hypertension -Monitor vital signs and continue daily medication management. Hyperlipidemia -Continue home daily medication management. History of the PE -DVT prophylaxis with heparin History of a CVA -Hold Plavix until cleared by GI and general surgery. -DVT prophylaxis with heparin -Echocardiogram revealed moderate LVH with a preserved ejection fraction 55-60% and mild aortic stenosis and mild mitral annular calcification present. CODE STATUS:DO NOT RESUSCITATE/DO NOT INTUBATE DVT prophylaxis: Heparin Discussed with: Patient. Anticipated discharge date: 2-[address]: Home A total of 45 minutes was spent on the care of this complex patient more than 50% of the time was spent in counseling and care coordination. Objective - Vital Signs Vital signs: Vital Signs Temp 98.1 F 09/07/20 08:21 Pulse 80 09/07/20 08:31 Resp 18 09/07/20 08:31 BP 134/71 09/07/20 08:21 Pulse Ox 94 L 09/07/20 08:21 Intake & Output 09/06/20 09/07/20 09/07/20 18:59 06:59 18:59 Intake Total 400 Output Total 150 225 Balance 250 -225 Intake: Oral 400 Output: Drainage 150 225 Left Lower Abdomen 150 225 Other: Voiding Method Urinal Incontinent # Voids 2 3 - Labs CBC & Chem 7: 09/07/20 04:59 09/07/20 04:59 Labs: Abnormal Lab Results - Last 24 Hours (Table) 09/07/20 Range/Units 04:59 Creatinine 1.6 H (0.6-1.5) mg/dL Est GFR (CKD-EPI)AfAm 43.9 L (60.0-200.0) Est GFR (CKD-EPI)NonAf 37.9 L (60.0-200.0) BUN/Creatinine Ratio 11.88 L (12.00-20.00) Ratio Total Protein 5.2 L (6.2-8.2) g/dL Albumin 3.30 L (3.80-4.90) g/dL
[2020-09-08] MEDS: HEPARIN SODIUM,PORCINE 5,000 UNIT/ML 1 ML VIAL SQ SCH ×2 (01:11→08:54)
[2020-09-08] MEDS: PIPERACILLIN-TAZOBACTAM 3.375 GM in SODIUM CHLORIDE 0.9% 100 ML IVPB SCH ×2 (01:11→14:30)
[2020-09-08 06:14] LABS: HCT 39.9 % (39.0-53.0); HGB 13.5 gm/dL (13.0-17.5); MCH 30.9 pg (25.0-35.0); MCHC 33.7 g/dL (31.0-37.0); MCV 91.7 fL (80.0-100.0); Mean Platelet Volume 7.5; Platelet Count 190 k/uL (150-450); RBC 4.36 m/uL (4.30-5.90); RDW 13.6 % (11.5-15.5); WBC 7.9 k/uL (3.8-10.6)
[2020-09-08] MEDS: amLODIPine 5 MG TAB PO SCH (08:55)
[2020-09-08] MEDS: ATORVASTATIN 40 MG TAB PO SCH (08:57)
[2020-09-08 09:31] LABS: African American GFR (CKD) 38.1 (60.0-200.0); Albumin 3.3 g/dL (3.80-4.90); Albumin/Globulin Ratio 1.74 (1.60-3.17); Anion Gap 6.2 mmol/L (4.00-12.00); BUN/Creat Ratio 11.11 Ratio (12.00-20.00); Calcium 9.4 mg/dL (8.7-10.3); Carbon Dioxide 28.8 mmol/L (21.6-31.8); Globulin 1.9 g/dL (1.6-3.3); Non-African American GFR(CKD) 32.9 (60.0-200.0); Potassium 4.9 mmol/L (3.5-5.5); Total Bilirubin 0.6 mg/dL (0.3-1.2); Total Protein 5.2 g/dL (6.2-8.2)
--- NOTE | 2020-09-08 11:44 | P.PN ---
Subjective Progress Note Date: 09/08/20 Principal diagnosis: Acute cholecystitis Hospital Course: Patient is an 89-year-old male with a past medical history including hypertension, hyperlipidemia, PE not currently on anticoagulation, CVA on Plavix, and CKD. He presented to [facility]'s emergency department this afternoon with a chief complaint of right upper quadrant pain. Patient reports that approximately 3 weeks ago he was seen and evaluated at [facility] where he was informed that he had to have his gallbladder removed, but they were not able to do this there and needed to transfer him to another facility. Patient states at that time a drain was placed and since patient was in the process of moving to this area, he was instructed to follow-up with Dr. Del Castillo and has an appointment scheduled for September 13. Patient states the drain was placed to prolong the surgery, but states over the last week he's been having increased pain, a difficult time eating and drinking, nausea, and diarrhea. Patient reports this pain significantly increases with any oral intake. Physical exam: Patient was seen and fully evaluated at the bedside. Pt states that "I actually feel well this morning." States nausea is controlled at this time and reports pain remains in RUQ and RLQ, but improved everywhere else and remains tolerable at this time stating 3-4 out of 10. Pt and RN at bedside states that General Suurgery had discussed potential cholecystectomy tomorrow, awaiting further recommendations at this time. Patient continues to deny having any chest pain, palpitations, shortness of breath, nausea, vomiting, diarrhea, or any changes in biliary drainage. Vital signs reviewed. Labs CBC unremarkable and BMP consistent with patient's stage III CKD. General: non toxic, no distress, appears at stated age Derm: warm, dry Head: atraumatic, normocephalic, symmetric Eyes: no lid lag, anicteric sclera Mouth: no lip lesion, mucus membranes moist Cardiovascular: S1S2 reg, murmur present, positive posterior tibial pulses bilaterally, 1+ left lower extremity pitting edema BLE. Lungs: CTA bilateral, no rhonchi, no rales , no accessory muscle use Abdominal: Obese abdomen, soft distended with tenderness to palpation throughout all 4 quadrants with guarding to right upper quadrant. Biliary drain remains in place with dark brown gastric drainage. Ext: no gross muscle atrophy, no contractures Neuro: CN II-XI grossly intact, no focal neuro deficits Psych: Alert, oriented, appropriate affect Assessment and Plan of Care: Right upper quadrant abdominal pain, acute cholecystitis with biliary tube in place -General surgery following, Dr. Quarles. General surgery recommending continuing antibiotic and continuing to hold Plavix for further surgical intervention. Plan for possible cholecystectomy tomorrow. -GI following, Dr. Drummond. -Gallbladder Ultrasound completed revealing only a small portion of the g allbladder was visualized and appeared mostly collapsed with mild wall thickening of 4 mm with no surrounding abnormal fluid collection and no biliary ductal dilation. -Diet was advanced to clear liquids, patient tolerating well. -Telemetry monitoring -Symptomatic care and pain management with Zofran as needed for nausea and morphine as needed for pain. -Continue IV antibiotic Zosyn -Continue to hold Plavix until cleared by general surgery. -CBC remains unremarkable. BMP consistent with patient's PCKD with BUN 20.0, creatinine 1.8, and GFR of 32.9. Liver profile and lipase normal findings. Chronic kidney disease stage III -BMP remains consistent with patient's CKD with BUN 20.0, creatinine 1.8, and GFR of 32.9. Hyperkalemia, secondary to elevated renal function, resolved. Hypertension -Monitor vital signs and continue daily medication management. Hyperlipidemia -Continue home daily medication management. History of the PE -DVT prophylaxis with heparin History of a CVA -Hold Plavix until cleared by GI and general surgery. -DVT prophylaxis with heparin -Echocardiogram revealed moderate LVH with a preserved ejection fraction 55-60% and mild aortic stenosis and mild mitral annular calcification present. CODE STATUS:DO NOT RESUSCITATE/DO NOT INTUBATE DVT prophylaxis: Heparin Discussed with: Patient. Anticipated discharge date: 2-[address]: Home A total of 45 minutes was spent on the care of this complex patient more than 50% of the time was spent in counseling and care coordination. Objective - Vital Signs Vital signs: Vital Signs Temp 98.2 F 09/08/20 04:17 Pulse 86 09/08/20 04:17 Resp 17 09/07/20 20:31 BP 121/71 09/08/20 04:17 Pulse Ox 91 L 09/08/20 04:17 Intake & Output 09/07/20 09/08/20 09/08/20 18:59 06:59 18:59 Intake Total 590 120 Output Total 190 Balance -190 590 120 Intake: Oral 590 120 Output: Drainage 190 Left Lower Abdomen 190 Other: Voiding Method Urinal Urinal Incontinent Diaper Incontinent - Labs CBC & Chem 7: 09/08/20 05:00 09/08/20 05:00 Labs: Abnormal Lab Results - Last 24 Hours (Table) 09/08/20 Range/Units 05:00 Creatinine 1.8 H (0.6-1.5) mg/dL Est GFR (CKD-EPI)AfAm 38.1 L (60.0-200.0) Est GFR (CKD-EPI)NonAf 32.9 L (60.0-200.0) BUN/Creatinine Ratio 11.11 L (12.00-20.00) Ratio Glucose 118 H (70-110) mg/dL Total Protein 5.2 L (6.2-8.2) g/dL Albumin 3.30 L (3.80-4.90) g/dL
[2020-09-08 13:13] VITALS: BP 154/83; PULSE 91; TEMP 98.5
--- NOTE | 2020-09-08 13:30 | P.PN ---
Subjective Progress Note Date: 09/08/20 Patient seen and evaluated. I personally spoke with the patient including admitting team. Patient at this time too high risk to proceed with surgery particularly with elevated bleeding risk due to recent Plavix use. Recommend earliest 7 days off Plavix. Patient to be scheduled for cholecystectomy September 12. Patient stable for discharge when medically stable. Objective - Vital Signs Vital signs: Vital Signs Temp 98.5 F 09/08/20 13:12 Pulse 91 09/08/20 13:12 Resp 12 09/08/20 13:12 BP 154/83 09/08/20 13:12 Pulse Ox 91 L 09/08/20 13:12 Intake & Output 09/07/20 09/08/20 09/08/20 18:59 06:59 18:59 Intake Total 590 120 Output Total 190 Balance -190 590 120 Intake: Oral 590 120 Output: Drainage 190 Left Lower Abdomen 190 Other: Voiding Method Urinal Urinal Incontinent Diaper Incontinent - Labs CBC & Chem 7: 09/08/20 05:00 09/08/20 05:00 Labs: Abnormal Lab Results - Last 24 Hours (Table) 09/08/20 Range/Units 05:00 Creatinine 1.8 H (0.6-1.5) mg/dL Est GFR (CKD-EPI)AfAm 38.1 L (60.0-200.0) Est GFR (CKD-EPI)NonAf 32.9 L (60.0-200.0) BUN/Creatinine Ratio 11.11 L (12.00-20.00) Ratio Glucose 118 H (70-110) mg/dL Total Protein 5.2 L (6.2-8.2) g/dL Albumin 3.30 L (3.80-4.90) g/dL
--- NOTE | 2020-09-08 13:47 | P.DS ---
Providers Date of admission: 09/05/20 14:55 Expected date of discharge: 09/08/20 Attending physician: Megan Burgos DO Consults: 09/05/20 16:07 Consult Physician Urgent Consulting Provider: Shahriar Drummond Reason/Comments: gallstone on outpt US, PACS. Significant pain. biliary/radha tube in place. Do you want consulting provider notified?: Yes 09/05/20 16:15 Consult Physician Urgent Consulting Provider: Coni Quarles Consult Reason/Comments: acute cholecystitis with biliary/radha drain in place [employer]NC TECHNICIAN Do you want consulting provider notified?: Yes Primary care physician: Stated None Hospital Course: Hospital Course: Patient is an 89-year-old male with a past medical history including hypertension, hyperlipidemia, PE not currently on anticoagulation, CVA on Plavix, and CKD. He presented to [facility]'s emergency department this afternoon with a chief complaint of right upper quadrant pain. Patient reports that approximately 3 weeks ago he was seen and evaluated at [facility] where he was informed that he had to have his gallbladder removed, but they were not able to do this there and needed to transfer him to another facility. Patient states at that time a drain was placed to prolong the surgery but secondary to having increased pain, a difficult time eating and drinking, nausea, and diarrhea he came to the hospital for further evaluation. Patient was admitted for workup for acute cholecystitis and was evaluated by general surgery. Gallbladder Ultrasound completed revealing only a small portion of the gallbladder was visualized and appeared mostly collapsed with mild wall thickening of 4 mm with no surrounding abnormal fluid collection and no biliary ductal dilation. Patient remained afebrile throughout admission with normal WBC count, liver profile and stable vital signs. Dr. Quarles Gen. surgeon recommending to continue to hold Plavix with plan for scheduled outpatient cholecystectomy on September 12. Patient being discharged at this time on oral antibiotics ciprofloxacin and Flagyl, instructed to continue to hold his Plavix, eat a low-fat diet, and follow-up Saturday for scheduled surgical procedure. Discharge diagnoses: Right upper quadrant abdominal pain, acute cholecystitis with biliary tube in place -General surgery Dr. Quarles cleared patient from surgical standpoint for discharge home. Plan for scheduled outpatient cholecystectomy September 12.. -Antibiotics: Ciprofloxacin and Flagyl -Continue to hold Plavix until cleared by general surgery to resume. Chronic kidney disease stage III -BMP consistent with patient's CKD with BUN 20.0, creatinine 1.8, and GFR of 32.9. Hyperkalemia, secondary to elevated renal function, resolved. Hypertension -Continue daily medication regimen with amlodipine. Hyperlipidemia -Continue home daily medication regimen with atorvastatin. History of the PE, not on anticoagulation History of a CVA -Hold Plavix for scheduled surgical procedure and continue to hold until cleared by general to resume. -Echocardiogram revealed moderate LVH with a preserved ejection fraction 55-60% and mild aortic stenosis and mild mitral annular calcification present. Physical exam: Patient was seen and fully evaluated at the bedside. Pt states that "I actually feel well this morning." States nausea is controlled at this time and reports pain remains in RUQ and RLQ, but improved everywhere else and remains tolerable at this time stating 3-4 out of 10. Patient continues to deny having any chest pain, palpitations, shortness of breath, nausea, vomiting, diarrhea, or any changes in biliary drainage. Vital signs reviewed. Labs CBC unremarkable and BMP consistent with patient's stage III CKD. General: non toxic, no distress, appears at stated age Derm: warm, dry Head: atraumatic, normocephalic, symmetric Eyes: no lid lag, anicteric sclera Mouth: no lip lesion, mucus membranes moist Cardiovascular: S1S2 reg, murmur present, positive posterior tibial pulses bilaterally, 1+ left lower extremity pitting edema BLE. Lungs: CTA bilateral, no rhonchi, no rales , no accessory muscle use Abdominal: Obese abdomen, soft distended with tenderness to palpation throughout all 4 quadrants with guarding to right upper quadrant. Biliary drain remains in place with dark brown gastric drainage. Ext: no gross muscle atrophy, no contractures Neuro: CN II-XI grossly intact, no focal neuro deficits Psych: Alert, oriented, appropriate affect A total of 45 minutes of time were spent preparing this complex discharge summa ry. Patient Condition at Discharge: Stable Plan - Discharge Summary New Discharge Prescriptions: No Action Clopidogrel [Plavix] 75 mg PO DAILY hydrOXYzine HCL [Atarax] 25 - 50 mg PO HS PRN PRN Reason: Anxiety amLODIPine [Norvasc] 5 mg PO DAILY Omeprazole 20 mg PO DAILY Montelukast [Singulair] 10 mg PO DAILY Atorvastatin [Lipitor] 40 mg PO DAILY Discharge Medication List Atorvastatin [Lipitor] 40 mg PO DAILY 09/05/20 [History] Clopidogrel [Plavix] 75 mg PO DAILY 09/05/20 [History] Montelukast [Singulair] 10 mg PO DAILY 09/05/20 [History] Omeprazole 20 mg PO DAILY 09/05/20 [History] amLODIPine [Norvasc] 5 mg PO DAILY 09/05/20 [History] hydrOXYzine HCL [Atarax] 25 - 50 mg PO HS PRN 09/05/20 [History] Follow up Appointment(s)/Referral(s): None,Stated [Primary Care Provider] - 1-2 days
[2020-09-08 13:54] VITALS: RESP 14
== END 2020-09-08 15:10 | disposition home or self-care (01) | DRG 445 ==
LOC: EC 11:31 → 5NMEDONC 14:55
PROVIDERS: ADMIT Internal Medicine; ATTEND Internal Medicine
DX: K80.00 Calculus of gallbladder with acute cholecystitis without obstruction (principal); N17.9 Acute kidney failure, unspecified; E78.5 Hyperlipidemia, unspecified; N18.30 Chronic kidney disease, stage 3 unspecified; I12.9 Hypertensive chronic kidney disease with stage 1 through stage 4 chronic kidney disease, or unspecified chronic kidney disease; Z66 Do not resuscitate; E87.5 Hyperkalemia; K40.90 Unilateral inguinal hernia, without obstruction or gangrene, not specified as recurrent; R60.0 Localized edema; Z79.899 Other long term (current) drug therapy; Z79.02 Long term (current) use of antithrombotics/antiplatelets; Z86.711 Personal history of pulmonary embolism; Z87.891 Personal history of nicotine dependence; Z86.73 Personal history of transient ischemic attack (TIA), and cerebral infarction without residual deficits; Z82.5 Family history of asthma and other chronic lower respiratory diseases; Z82.49 Family history of ischemic heart disease and other diseases of the circulatory system
CPT/HCPCS: 36415; 71045; 74176; 76705; 80053; 81001; 82150; 83690; 83735; 83880; 85025; 85027; 85610; 85730; 93005; 93306; 96360; 96361; 99285

== ENCOUNTER 2020-09-12 06:16 | Observation (INO) | payer MEDICARE ==
[2020-09-09 10:42] VITALS: BMI 32.8
[~2020-09-12 06:16] MED LIST: ACETAMINOPHEN TAB 500 MG TAB PO STA; GABAPENTIN 300 MG CAP PO STA; HEPARIN SODIUM,PORCINE 5,000 UNIT/ML 1 ML VIAL SQ PRN; TAMSULOSIN 0.4 MG CAP.ER.24H PO STA
--- NOTE | 2020-09-12 06:22 | P.GSHP ---
History of Present Illness H&P Date: 09/12/20 CHIEF COMPLAINT: Cholecystitis HISTORY OF PRESENT ILLNESS: The patient is a 89 year old male who more than 2-3 weeks ago was in the [facility] moving to the formerly [facility]. He developed acute right upper quadrant abdominal pain and was hospitalized. he was diagnosed with cholecystitis at that time.As he was moving, patient wanted to avoid surgery and wanted a separate option of cholecystostomy drainage tube. He was then referred for surgical intervention in the local area. Prior to his outp atient appointment, patient developed right upper quadrant abdominal pain and was hospitalized recently. Additional diagnostic studies were performed including consultation to GI. Patient had been on Plavix where surgical intervention was ill advised due to high risk of bleeding. Patient now presents for surgical intervention. PAST MEDICAL HISTORY: See list and reviewed PAST SURGICAL HISTORY: See list and reviewed MEDICATIONS: See list and reviewed ALLERGIES: See list and reviewed SOCIAL HISTORY: See list and reviewed FAMILY HISTORY: See list and reviewed REVIEW OF ORGAN SYSTEMS: CONSTITUTIONAL: No fevers or chills. No recent weight loss. EYES: Denies any trouble with vision. No glasses. HEENT: No difficulties with hearing. No nosebleeds. No difficulty swallowing. RESPIRATORY: Denies pneumonia. past pulmonary embolism. CARDIOVASCULAR: Past chest pain, palpitations, or recent heart attacks. has hypertension including hyperlipidemia. GASTROINTESTINAL: H fatty food intolerance. Denies change in bowel habits and gas bloat. GENITOURINARY: Denies any blood in urine. Has increased urinary frequency. Has chronic renal insufficiency NEUROLOGICAL: Denies any numbness or tingling along the distal extremities. No seizure disorders or headaches. MUSCULOSKELETAL: Has back pain, stiffness or joint arthritis. SKIN: No current skin cancer. No rash. PSYCHIATRIC: Denies current depression or suicidal thoughts. ENDOCRINE: Denies current thyroid disorders. Denies any blood sugar glucose intolerance. HEME/LYMPHATIC: Denies any lumps and bumps around the neck. Past deep venous thrombosis. ALLERGY/IMMUNOLOGY: No immunoglobulin therapy. No immune deficiencies. BREAST: Denies current breast lumps, pain or nipple discharge. PHYSICAL EXAM: VITALS: Reviewed CONSTITUTIONAL: Well developed and in no acute distress. EYES: Conjuctivae without sclera icterus. Pupils are equally round and reactive to light. Extraocular movements grossly intact. HEAD, EARS, NOSE, THROAT: Moist buccal mucosa. Head is atraumatic, normocephalic. Hears conversational speech. No nasal drainage. NECK: Supple. No JV distention. No thyroidomegaly. RESPIRATORY: Non-labored respirations and equal bilateral excursions. No gross wheezes. CARDIOVASCULAR: Regular rate and rhythm. Extremities without moderate edema. Palpable 2+ radial pulses. ABDOMEN: Soft. Non-tender. Nondistended. LYMPH: No neck lymphadenopathy. MUSCULOSKELETAL:Nail and fingers with good capillary refill. SKIN: Warm and well perfused with good skin turgor. NEUROLOGIC: Cranial nerves II through XII grossly intact. Sensation upper and extremities intact. No focal or lateralizing signs. PSYCH: Appropriate affect. Alert and oriented to person, place and time. Displays appropriate insight. CLINCAL LABS: Reviewed. Previous normal at WBC 7.9. Creatinine elevated 1.8.LFTs within normal limits IMAGING: Independently reviewed CT of the abdomen and pelvis demonstrating completely contracted gallbladder with percutaneous drain to the right upper quadrant. This is my independent interpretation. ECHO: Recent echo demonstrated ejection fraction 55-60% with moderate left ventricular hypertrophy. ASSESSMENT: 1. Complicated acute cholecystitis due to gallstones 2. Hypertensive heart disease 3. Hyperlipidemia 4. Chronic antiplatelet therapy 5. 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 Pre-existing lower obstructive uropathy PLAN: 1. He is elevated risk for surgical complications due to complicated acute cholecystitis with presence of percutaneous cholecystostomy tube. 2. Robotic cholecystectomy described with removal of percutaneous drain. 3. Recommend repeat CBC and CMP with history of renal insufficiency 4. May require observation following surgery due to pre-existing comorbidities and elevated surgical risk Past Medical History Past Medical History: CVA/TIA, Hyperlipidemia, Hypertension, Pulmonary Embolus (PE), Renal Disease Additional Past Medical History / Comment(s): biliary drain present, hx PE 2018 History of Any Multi-Drug Resistant Organisms: None Reported Additional Past Surgical History / Comment(s): drainage tube to gallbladder Past Anesthesia/Blood Transfusion Reactions: No Reported Reaction Additional Past Anesthesia/Blood Transfusion Reaction / Comment(s): never has had general anesthesia or blood transfusion Smoking Status: Former smoker - Past Family History Mother Family Medical History: COPD Father Family Medical History: Coronary Artery Disease (CAD) Medications and Allergies Home Medications Medication Instructions Recorded Confirmed Type Atorvastatin [Lipitor] 40 mg PO DAILY 09/05/20 09/09/20 History Clopidogrel [Plavix] 75 mg PO DAILY 09/05/20 09/09/20 History Montelukast [Singulair] 10 mg PO QAM 09/05/20 09/09/20 History Omeprazole 20 mg PO QAM 09/05/20 09/09/20 History amLODIPine [Norvasc] 5 mg PO QAM 09/05/20 09/09/20 History hydrOXYzine HCL [Atarax] 25 - 50 mg PO HS PRN 09/05/20 09/09/20 History Amoxicillin/Potassium Clav 1 tab PO Q12HR 5 Days #10 tab 09/08/20 09/09/20 Rx [Augmentin 500-125 Tablet] Doxylamine Succinate [Unisom] 25 mg PO HS PRN 09/09/20 09/09/20 History Allergies Allergy/AdvReac Type Severity Reaction Status Date / Time No Known Allergies Allergy Verified 09/09/20 10:13 Assessment and Plan (1) Hypertensive heart and chronic kidney disease Status: Acute Code(s): I13.10 - HYP HRT & CHR KDNY DIS W/O HRT FAIL, W STG 1- 4/UNSP CHR KDNY SNOMED Code(s): 4765602122386 (2) Stage 3 chronic kidney disease due to benign hypertension Status: Acute Code(s): I12.9 - HYPERTENSIVE CHRONIC KIDNEY DISEASE W STG 1- 4/UNSP CHR KDNY; N18.30 - CHRONIC KIDNEY DISEASE, STAGE 3 UNSPECIFIED SNOMED Code(s): 619253655951540 (3) Antiplatelet or antithrombotic long-term use Status: Acute Code(s): Z79.02 - SNF (CURRENT) USE OF ANTITHROMBOTICS/ANTIPLATELETS SNOMED Code(s): 008152801 (4) Biliary drain displacement Status: Acute Code(s): T85.520A - DISPLACEMENT OF BILE DUCT PROSTHESIS, INITIAL ENCOUNTER SNOMED Code(s): 043909044 (5) Acute cholecystitis Status: Acute Code(s): K81.0 - ACUTE CHOLECYSTITIS SNOMED Code(s): 99636023 (6) Right upper quadrant pain Status: Acute Code(s): R10.11 - RIGHT UPPER QUADRANT PAIN SNOMED Code(s): 042336266
[2020-09-12] MEDS ORDERED: LACTATED RINGERS 1,000 ML IV ONE ×4 (06:45→10:25)
[2020-09-12] MEDS ORDERED: ONDANSETRON 4 MG/2 ML VIAL ONE (06:57)
[2020-09-12 07:34] LABS: Albumin 3.5 g/dL (3.5-5.0); Calcium 10.2 mg/dL (8.4-10.2); Potassium 4.6 mmol/L (3.5-5.1); Total Protein 6.7 g/dL (6.3-8.2)
[2020-09-12] MEDS ORDERED: ONDANSETRON 4 MG/2 ML VIAL IVP ONE (07:34)
[2020-09-12] MEDS ORDERED: LIDOCAINE 1% (10MG/ML) FOR IV START INTRADERMA PRN (07:34)
[2020-09-12] MEDS ORDERED: DEXAMETHASONE SOD PHOSPHATE 4 MG/ML 1 ML VIAL IV ONE (07:34)
[2020-09-12] MEDS ORDERED: MIDAZOLAM 2 MG/2 ML VIAL IV PRN (07:34)
[2020-09-12] MEDS ORDERED: ROCURONIUM 10 MG/ML (10 ML VIAL) IV ONE (07:49)
[2020-09-12] MEDS ORDERED: SUCCINYLCHOLINE CHLORIDE 100 MG/5 ML SYR IV ONE (07:49)
[2020-09-12] MEDS ORDERED: GLYCOPYRROLATE 0.2 MG/ML 2 ML VIAL ONE (07:49)
[2020-09-12] MEDS ORDERED: NEOSTIGMINE 1 MG/ML 10 ML VIAL ONE (07:49)
[2020-09-12] MEDS ORDERED: HYDROmorphone (PF) 1 MG/ML ONE (07:49)
[2020-09-12] MEDS ORDERED: PROPOFOL 10 MG/ML 20 ML VIAL IV ONE (07:49)
[2020-09-12] MEDS ORDERED: fentaNYL (PF) 50 MCG/ML 2 ML AMP ONE (07:49)
[2020-09-12] MEDS ORDERED: LIDOCAINE 1% INJ 10MG/ML (20 ML MDV) ONE (07:49)
[2020-09-12] MEDS ORDERED: LIDOCAINE 2%-EPI 1:100,000 20 ML VIAL SQ ONE ×2 (08:11→08:14)
[2020-09-12 08:47] LABS: Basophils # (A) 0.1 k/uL (0-0.2); Basophils % (A) 1 %; Eosinophils # (A) 0.8 k/uL (0-0.7); Eosinophils % (A) 8 %; HCT 45.9 % (39.0-53.0); HGB 15.8 gm/dL (13.0-17.5); Lymphocytes # (A) 2.1 k/uL (1.0-4.8); Lymphocytes % (A) 21 %; MCH 31.2 pg (25.0-35.0); MCHC 34.5 g/dL (31.0-37.0); MCV 90.4 fL (80.0-100.0); Mean Platelet Volume 8.2; Monocytes # (A) 0.5 k/uL (0-1.0); Monocytes % (A) 5 %; Neutrophils # (A) 6.3 k/uL (1.3-7.7); Neutrophils % (A) 64 %; Platelet Count 221 k/uL (150-450); RBC 5.07 m/uL (4.30-5.90); RDW 13.9 % (11.5-15.5); WBC 9.8 k/uL (3.8-10.6)
--- NOTE | 2020-09-12 09:41 | P.OP ---
Date of Procedure: 09/12/20 Description of Procedure: SURGEON: VIDHI FRENCH MD PREOPERATIVE DIAGNOSES: 1. Acute cholecystitis with percutaneous cholecystostomy tube 2. Pre-existing acute kidney injury, stage III 3. Hypertensive heart disease 4. Gastroesophageal reflux disease 5. Chronic antiplatelet therapy 6. Hyperlipidemia POSTOPERATIVE DIAGNOSES: 1. Acute cholecystitis with percutaneous cholecystostomy tube 2. Pre-existing acute kidney injury, stage III 3. Hypertensive heart disease 4. Gastroesophageal reflux disease 5. Chronic antiplatelet therapy 6. Hyperlipidemia 7. Right upper quadrant peritoneal adhesions OPERATION: Robotic-assisted da Nereida Xi laparoscopic lysis of adhesions Robotic-assisted da Nereida Xi laparoscopic cholecystectomy, multiport with FIREFLY Removal of interventional radiology percutaneous cholecystostomy tube ESTIMATED BLOOD LOSS: 5 mL. SPECIMENS REMOVED: Gallbladder. COMPLICATIONS: None. OPERATIVE FINDINGS: 1. Completely decompressed gallbladder with percutaneous tube at fundus 2. Moderate right upper quadrant peritoneal adhesions requiring lysis of adhesions using hook cautery INDICATIONS: The patient is a 89 year-old male who presents with a complicated acute cholecystitis with placement of percutaneous cholecystostomy tube at outside institution. He also presented with acute kidney injury with chronic antiplatelet therapy for which he was optimized prior to surgery. Surgical intervention with cholecystectomy was described. Robotic assisted laparoscopic approach was described. Benefits and risks of the procedure including but not limited to bleeding, infection, injury to the biliary tree was reviewed. Informed consent was obtained. DESCRIPTION OF PROCEDURE: Patient was brought to the operating room, placed in supine position. After general induction, the abdomen had been prepped and draped in standard sterile fashion including percutaneous cholecystostomy tube. The robotic da Nereida XI system was primed. After a timeout protocol was performed, the patient had been prepped and draped in standard sterile fashion. The patient was injected with indocyanine green. A 5 mm 0 degrees laparoscopic trocar entry was performed along the left upper quadrant. The abdomen insufflated to 15 mmHg pressure which was tolerated well. Diagnostic laparoscopy demonstrated no injury to bowel viscera or mesentery. The liver surface was unremarkable. A completely decompressed gallbladder was identified adding complexity to the case. Next, two 8 mm robotic ports were placed along the right upper abdomen. The camera 8-mm port was maintained along the epigastrium. Another 8 mm port was placed along the left upper abdominal wall after exchanging the 5 mm port. Please note that the ports were placed at least 10 to 15 cm away from the target anatomy of the gallbladder. The robot was docked along the left lateral abdomen. The patient was repositioned in reverse Trendelenburg position with the right side up. Using a grasper for arm 3, a grasper for arm 4, including hook cautery for arm 1, the robotic system was docked and primed as described. Instruments were interchanged by the assistant signal maintainer including hook cautery, Bovie cautery and clip appliers. I had sat at the console. The gallbladder was reflected towards the dome of the liver. The gallbladder was completely decompressed with moderate to severe adhesions of the right upper quadrant from his percutaneous cholecystostomy tube. Using hook cautery, adh esions of the omentum to the abdominal wall including gallbladder to abdominal wall was sharply lysed without injury. A dome down technique was performed removing the gallbladder from the hepatic fossa starting from the fundus towards the infundibulum due to additional adhesions along the cystic structures. Using a sponge, the liver was reflected towards the diaphragm and starting at the gallbladder fundus, hook cautery was used to find the avascular plane between the liver and the gallbladder. As the gallbladder was dissected from the hepatic fossa, hemostasis was checked using vessel sealer along the posterior gallbladder. Next, indocyanine green was used to confirm the common bile duct as well as cystic duct. The infundibulum was retracted laterally to expose the cystic duct away from the common bile duct. The cystic duct was dissected free from its surrounding tissue. FIREFLY was used to identify the cystic structures. A critical view of safety was obtained. Large PLASTIC clips were used throughout the entire case. Using a clip civil engineer in training, a clip was placed at the junction of the infundibulum and cystic duct. A total of 3 clips were placed on the cystic duct. The cystic duct was divided using vessel sealer. Next, the cystic artery was divided using vessel sealer. Electro-Bovie cautery and vessel sealer was used to remove the gallbladder without decompression. Hemostasis was checked and found to be adequate. I went at the bedside to cut the cholecystostomy tube flushed against the skin prior to removal of the gallbladder. The robot was undocked. I re-scrubbed into the case. A 10 mm Endo Catch bag was used to remove the gallbladder in total via the left upper quadrant incision. The specimen was removed from the abdominal cavity. The fascia was closed using Daniele Willson and 0 Vicryl. All pneumoperitoneum instruments were evacuated from the abdominal cavity. The incisions were cleansed using dilute hydrogen peroxide. The incisions were reapproximated using 4-0 Monocryl in an interrupted subcuticular fashion. Please note along the trocar sites, local anesthetic was placed as a field block prior to insertion of all instruments. Liquid glue was applied to the skin. At the end of the procedure needle, sponge, and instrument count had been verified correct by the it help desk technician. The patient was transferred to postanesthesia care unit in stable condition. Intraoperative films were shared with the patient's family who were pleased with the level of care. Plan - Discharge Summary Discharge Rx Participant: No New Discharge Prescriptions: No Action Clopidogrel [Plavix] 75 mg PO DAILY hydrOXYzine HCL [Atarax] 25 - 50 mg PO HS PRN PRN Reason: Anxiety amLODIPine [Norvasc] 5 mg PO QAM Omeprazole 20 mg PO QAM Montelukast [Singulair] 10 mg PO QAM Atorvastatin [Lipitor] 40 mg PO DAILY Amoxicillin/Potassium Clav [Augmentin 500-125 Tablet] 1 tab PO Q12HR 5 Days #10 tab Doxylamine Succinate [Unisom] 25 mg PO HS PRN PRN Reason: sleep Discharge Medication List Atorvastatin [Lipitor] 40 mg PO DAILY 09/05/20 [History] Clopidogrel [Plavix] 75 mg PO DAILY 09/05/20 [History] Montelukast [Singulair] 10 mg PO QAM 09/05/20 [History] Omeprazole 20 mg PO QAM 09/05/20 [History] amLODIPine [Norvasc] 5 mg PO QAM 09/05/20 [History] hydrOXYzine HCL [Atarax] 25 - 50 mg PO HS PRN 09/05/20 [History] Amoxicillin/Potassium Clav [Augmentin 500-125 Tablet] 1 tab PO Q12HR 5 Days #10 tab 09/08/20 [Rx] Doxylamine Succinate [Unisom] 25 mg PO HS PRN 09/09/20 [History]
[2020-09-12] MEDS: HYDROmorphone 0.5 MG/0.5 ML SYRINGE IVP PRN ×2 (09:46→09:55)
[2020-09-12] MEDS ORDERED: ONDANSETRON 4 MG/2 ML VIAL IVP PRN (10:09)
[2020-09-12] MEDS ORDERED: oxyCODONE-APAP 5-325MG 1 EACH TAB PO PRN (10:09)
[2020-09-12] MEDS ORDERED: NALOXONE 0.4 MG/ML 1 ML VIAL IV PRN (10:09)
--- NOTE | 2020-09-12 10:09 | P.PN ---
Progress Note - Text Progress Note Date: 09/12/20 Patient seen and evaluated. Intraoperative findings discussed with the patient's daughter. Patient recently moved to the area and does not have a primary care provider. Daughter provides additional history that patient has chronic kidney disease, creatinine 1.9 to the best of her knowledge. Between previous admission and now, kidneys are worse. Renal function is more impaired. Patient also has history of pulmonary embolism. Due to multiple comorbidities which make him high risk for cholecystectomy, recommend observation. Consultation to nephrology and medicine advised. DVT prophylaxis with Lovenox prescribed. Patient's family is agreeable with care plan.
[2020-09-12] MEDS: SODIUM CHLORIDE 0.9% 1,000 ML IV SCH ×2 (11:06→23:18)
--- NOTE | 2020-09-12 11:13 | P.NPCON ---
History of Present Illness - Reason for Consult acute renal failure - History of Present Illness Reason for consultation: Acute kidney injury History of present illness: Patient is a 89-year-old male seen in renal consultation for acute kidney injury. Patient's creatinine has been in the range of 1.6-1.8 this month. Today it is 1.93. Patient underwent cholecystectomy as well as removal of the percutaneous cholecystectomy tube this morning. He denies chest pain or shortness of breath. No edema. No hematuria or dysuria. No history of diabetes. He states he does have long-standing history of diabetes mellitus. He denies family history of renal disease. Patient states he did take Motrin on a regular basis several years ago but none recently. He does not follow with a simulation specialist outpatient. He is maintained on IV fluids. Blood pressure is stable. No vomiting or diarrhea. Denies any significant pain. Vital signs are stable. General: The patient appeared well nourished and normally developed. HEENT: Head exam is unremarkable. Neck is without jugular venous distension. LUNGS: Breath sounds decreased. HEART: Rate and Rhythm are regular. ABDOMEN: Soft, nontender. EXTREMITITES: No edema. Past Medical History Past Medical History: CVA/TIA, Hyperlipidemia, Hypertension, Pulmonary Embolus (PE), Renal Disease Additional Past Medical History / Comment(s): biliary drain present, hx PE 2018 History of Any Multi-Drug Resistant Organisms: None Reported Additional Past Surgical History / Comment(s): drainage tube to gallbladder Past Anesthesia/Blood Transfusion Reactions: No Reported Reaction Additional Past Anesthesia/Blood Transfusion Reaction / Comment(s): never has had general anesthesia or blood transfusion Smoking Status: Former smoker - Past Family History Mother Family Medical History: COPD Father Family Medical History: Coronary Artery Disease (CAD) Medications and Allergies Home Medications Medication Instructions Recorded Confirmed Type Montelukast [Singulair] 10 mg PO QAM 09/05/20 09/09/20 History Acetaminophen Tab [Tylenol Tab] 1,000 mg PO Q6HR PRN #30 tablet 09/12/20 Rx Allergies Allergy/AdvReac Type Severity Reaction Status Date / Time No Known Allergies Allergy Verified 09/12/20 06:49 Physical Exam Vitals: Vital Signs Temp Pulse Resp BP Pulse Ox 09/12/20 10:18 99 16 107/63 99 09/12/20 10:03 95 18 117/56 99 09/12/20 09:48 92 18 130/63 98 09/12/20 09:33 96.8 F L 93 20 139/61 99 09/12/20 07:00 97.5 F L 95 16 155/73 96 Intake and Output 09/11/20 09/12/20 09/12/20 22:59 06:59 14:59 Intake Total 200 2650 Output Total 5 Balance 200 2645 Intake: IV 200 2650 Output: Estimated Blood Loss 5 Other: Weight 103.9 kg Results - Lab Results Most recent lab results Calcium 10.2 mg/dL (8.4-10.2) 09/12/20 07:00 09/12/20 07:00 09/12/20 07:00 Assessment and Plan Plan: assessment: 1. Acute kidney injury versus chronic kidney disease. Etiology is most likely nephrosclerosis. Creatinine stable in the range of 1.6-1.8 this [facility]. 1.93 today. No other records available. 2. Acute cholecystitis status post cholecystectomy and removal of percutaneous cholecystectomy tube this morning. 3. Benign hypertension. Controlled. Plan: Maintain normal saline at 75 mL an hour. Check urinalysis. Check renal ultrasound. Continue to monitor renal function and urine output. Thank you for the consultation. I will continue to follow this patient with you during his hospital stay.
[2020-09-12] MEDS: LACTATED RINGERS 1,000 ML IV SCH (12:24)
[2020-09-12] MEDS: ACETAMINOPHEN TAB 325 MG TAB PO SCH ×3 (12:25→23:15)
--- NOTE | 2020-09-12 13:04 | US ---
EXAMINATION TYPE: US kidneys/renal and bladder DATE OF EXAM: 09/12/2020 COMPARISON: CT abdomen and pelvis September 05, 2020 CLINICAL HISTORY: ruddy. post cholecystectomy, ruddy, patient sleeping and unable to awake to move, large habitus EXAM MEASUREMENTS: Right Kidney: 10.1 x 4.7 x 5.5 cm Left Kidney: 9.7 x 4.2 x 5.2 cm Right Kidney: inferior cyst seen = 2.6cm Left Kidney: No hydronephrosis or masses seen Bladder: wnl Cortical thinning bilaterally. There is 2.6 x 1.7 cm thin-walled cyst lower pole level on ultrasound corresponding to anterior lesion CT sagittal image 41. Upper pole cyst on CT less well-seen on ultras ound images saved. Bladder is not greatly distended. Increased cortical echogenicity left kidney. No hydronephrosis seen bilaterally. IMPRESSION: Evidence of chronic medical renal disease redemonstrated. No hydronephrosis seen ruth soto.
[2020-09-12 14:34] VITALS: RESP 17
[2020-09-12 22:38] LABS: Appearance,Urine Clear (Clear); Bilirubin,Urine Negative (Negative); Blood,Urine Negative (Negative); Color,Urine Yellow; Glucose,Urine (UA) Negative (Negative); Ketones,Urine Trace (Negative); Leukocyte Esterase,Urine Negative (Negative); Nitrite,Urine Negative (Negative); PH, Urine 5.5 (5.0-8.0); Protein,Urine Trace (Negative); Specific Gravity,Urine 1.023 (1.001-1.035); Urobilinogen,Urine <2.0 mg/dL (<2.0)
--- NOTE | 2020-09-12 22:44 | P.CONS ---
History of Present Illness - Reason for Consult Consult date: 09/12/20 - History of Present Illness Patient is an 89-year-old male with a PMH of hypertension, hyperlipidemia, history of PE (not on AC), CVA, and chronic end disease who was admitted to the hospital for a planned laparoscopic cholecystectomy. The patient underwent the procedure earlier today with no immediate postoperative competitions. He was seen at the bedside. He reported excellent control of his pain, currently at a 0 out of 10. He notes having passed gas and has been up out of bed and used the restroom. He denied nausea, vomiting, fever, chills, diarrhea. Also denied chest discomfort, shortness of breath, and cough. Review of Systems General: non toxic, no distress, appears at stated age, obese Derm: no unusual rashes/lesions no unusual ecchymoses, warm, dry Head: atraumatic, normocephalic, symmetric Eyes: EOMI, no lid lag, anicteric sclera, pupils equal round reactive to light ENT: Nose and ears atraumatic, no thrush, no pharyngeal erythema Neck: No thyromegaly, no cervical lymphadenopathy, trachea midline, supple Mouth: no lip lesion, mucus membranes moist Cardiovascular: S1S2 reg, no murmur, positive posterior tibial pulse bilateral, no edema, capillary refill less than 2 seconds Lungs: CTA bilateral, no rhonchi, no rales , no accessory muscle use Abdominal: obese, laproscope incisions closed without drainage, nontender to palpation, no guarding Ext: no gross muscle atrophy, muscle strength 5 out of 5 in all 4 extremities grossly, no contractures Neuro: CN II-XI grossly intact, light touch intact all 4 extremities, finger to nose within normal limits Psych: Alert, oriented, appropriate affect Past Medical History Past Medical History: CVA/TIA, Hyperlipidemia, Hypertension, Pulmonary Embolus (PE), Renal Disease Additional Past Medical History / Comment(s): biliary drain present, hx PE 2018 History of Any Multi-Drug Resistant Organisms: None Reported Additional Past Surgical History / Comment(s): drainage tube to gallbladder Past Anesthesia/Blood Transfusion Reactions: No Reported Reaction Additional Past Anesthesia/Blood Transfusion Reaction / Comm: never has had general anesthesia or blood transfusion Smoking Status: Former smoker - Past Family History Mother Family Medical History: COPD Father Family Medical History: Coronary Artery Disease (CAD) Medications and Allergies Home Medications Medication Instructions Recorded Confirmed Type Montelukast [Singulair] 10 mg PO QAM 09/05/20 09/09/20 History Acetaminophen Tab [Tylenol Tab] 1,000 mg PO Q6HR PRN #30 tablet 09/12/20 Rx Amoxic-Pot Clav 500-125 mg 1 tab PO Q12H 09/12/20 09/12/20 History [Augmentin 500-125 mg] Atorvastatin [Lipitor] 40 mg PO DAILY 09/12/20 09/12/20 History Clopidogrel Bisulfate [Plavix] 75 mg PO DAILY 09/12/20 09/12/20 History Omeprazole [PriLOSEC] 20 mg PO DAILY 09/12/20 09/12/20 History amLODIPine [Norvasc] 5 mg PO DAILY 09/12/20 09/12/20 History hydrOXYzine HCL [Atarax] 25 - 50 mg PO HS PRN 09/12/20 09/12/20 History Allergies Allergy/AdvReac Type Severity Reaction Status Date / Time No Known Allergies Allergy Verified 09/12/20 06:49 Physical Exam Vitals: Vital Signs Temp Pulse Pulse Resp BP BP Pulse Ox 09/12/20 17:09 97 09/12/20 14:00 97.6 F 101 H 17 115/73 96 09/12/20 10:31 98 F 102 H 16 112/50 94 L 09/12/20 10:18 99 16 107/63 99 09/12/20 10:03 95 18 117/56 99 09/12/20 09:48 92 18 130/63 98 09/12/20 09:33 96.8 F L 93 20 139/61 99 09/12/20 07:00 97.5 F L 95 16 155/73 96 Intake and Output 09/12/20 09/12/20 09/12/20 06:59 14:59 22:59 Intake Total 200 2650 260 Output Total 5 Balance 200 2645 260 Intake: IV 200 2650 Oral 260 Output: Estimated Blood Loss 5 Other: Weight 103.9 kg Results CBC & Chem 7: 09/12/20 07:00 09/12/20 07:00 Labs: Abnormal Lab Results - Last 24 Hours (Table) 09/12/20 09/12/20 Range/Units 07:00 07:00 Eosinophils # 0.8 H (0-0.7) k/uL BUN 21 H (9-20) mg/dL Creatinine 1.93 H (0.66-1.25) mg/dL Glucose 121 H (74-99) mg/dL Assessment and Plan Plan: HTN, HLD -C/w home meds: Norvasc, Lipitor Hx of CVA -Plavix was held in anticipation of surgery. Will await recs from Gen Surg regarding resumption Chronic kidney disease -At baseline S/p laparoscopic cholecystectomy -Defer management including pain control to surgery service DVT prophylaxis -Currently on Lovenox by the surgery service
[2020-09-12] MEDS ORDERED: AMOXIC-POT CLAV 500-125 MG 1 EACH TAB PO SCH (23:00)
[2020-09-12] MEDS ORDERED: hydrOXYzine HCL 25 MG TAB PO PRN (23:00)
[2020-09-13] MEDS: ACETAMINOPHEN TAB 325 MG TAB PO SCH ×2 (05:21→14:56)
[2020-09-13] MEDS ORDERED: CLOPIDOGREL 75 MG TAB PO SCH (09:00)
[2020-09-13] MEDS ORDERED: ATORVASTATIN 40 MG TAB PO SCH (09:00)
[2020-09-13] MEDS ORDERED: PANTOPRAZOLE 40 MG TABLET PO SCH (09:00)
[2020-09-13] MEDS ORDERED: ENOXAPARIN 30 MG/0.3 ML SYRINGE SQ SCH (09:00)
[2020-09-13] MEDS ORDERED: MONTELUKAST 10 MG TAB PO SCH (09:00)
[2020-09-13] MEDS ORDERED: amLODIPine 5 MG TAB PO SCH (09:00)
--- NOTE | 2020-09-13 09:15 | P.PN ---
Subjective Patient is seen in follow-up for acute kidney injury. Labs from today are pending. He is tolerating oral intake. No chest pain or shortness of breath. Good urine output. Vital signs are stable. General: The patient appeared well nourished and normally developed. HEENT: Head exam is unremarkable. Neck is without jugular venous distension. LUNGS: Lungs are clear to auscultation and percussion. Breath sounds decreased. HEART: Rate and Rhythm are regular. ABDOMEN: Soft, nontender. EXTREMITITES: No edema. Objective - Vital Signs Vital signs: Vital Signs Temp 98.1 F 09/13/20 03:00 Pulse 79 09/13/20 03:00 Resp 17 09/12/20 14:00 BP 143/74 09/13/20 03:00 Pulse Ox 94 L 09/13/20 03:00 Intake & Output 09/12/20 09/13/20 09/13/20 18:59 06:59 18:59 Intake Total 2910 Output Total 5 500 Balance 2905 -500 Weight 103.9 kg Intake: IV 2650 Oral 260 Output: Urine 500 Estimated Blood Loss 5 Other: Voiding Method Urinal # Voids 2 - Labs CBC & Chem 7: 09/12/20 07:00 09/12/20 07:00 Labs: Abnormal Lab Results - Last 24 Hours (Table) 09/12/20 Range/Units 21:45 Urine Protein Trace H (Negative) Urine Ketones Trace H (Negative) Assessment and Plan Plan: assessment: 1. Acute kidney injury versus chronic kidney disease. 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 Creatinine stable in the range of 1.6-1.8 this month - 1.93 as of yesterday. UA fairly benign. No hydronephrosis noted on kidney ultrasound. 2. Acute cholecystitis status post cholecystectomy and removal of percutaneous cholecystectomy tube on September 12. 3. Benign hypertension. Controlled. Plan: Hep-Lock IV fluids. Follow up outpatient for chronic kidney disease care.
[2020-09-13 09:49] LABS: African American GFR (CKD) 40.8 (60.0-200.0); Albumin 3.4 g/dL (3.80-4.90); Albumin/Globulin Ratio 2.13 (1.60-3.17); Anion Gap 4.7 mmol/L (4.00-12.00); BUN/Creat Ratio 13.53 Ratio (12.00-20.00); Calcium 9.3 mg/dL (8.7-10.3); Carbon Dioxide 26.3 mmol/L (21.6-31.8); Globulin 1.6 g/dL (1.6-3.3); Non-African American GFR(CKD) 35.2 (60.0-200.0); Total Bilirubin 0.5 mg/dL (0.2-1.2)
[2020-09-13] MEDS: LACTATED RINGERS 1,000 ML IV SCH (12:00)
--- NOTE | 2020-09-13 12:58 | P.PN ---
Subjective Progress Note Date: 09/13/20 Principal diagnosis: cholecystitis Patient is an 89-year-old male for history of hypertension, dyslipidemia, pulmonary embolism, CVA, and chronic kidney disease who was admitted to the hospital for planned laparoscopic cholecystectomy. Postoperatively had a slight increase in his creatinine from baseline of 1.7-1.93. We're consulted for medical management. Patient seen and examined at bedside. He is tolerating his diet. He has been passing gas but has not had a bowel movement. His abdominal pain is well controlled. No chest pain or shortness of breath. He is anxious to be discharged home as he is feeling well. General: non toxic, no distress, appears younger than stated age Derm: warm, dry Head: atraumatic, normocephalic, symmetric Eyes: EOMI, no lid lag, anicteric sclera Mouth: no lip lesion, mucus membranes moist Cardiovascular: S1S2 reg, no murmur, positive posterior tibial pulse bilateral, Lungs: CTA bilateral, no rhonchi, no rales , no accessory muscle use Abdominal: soft, +tender to palpation diffusely, no guarding, no appreciable organomegaly Ext: no gross muscle atrophy, no edema, no contractures Neuro: CN II-XI grossly intact, no focal neuro deficits Psych: Alert, oriented, appropriate affect 89-year-old male status post laparoscopic cholecystectomy Acute kidney injury on chronic kidney disease stage III -Improved -Outpatient follow-up with nephrology Hypertension -Norvasc Dyslipidemia -Lipitor History of CVA -Continue to hold Plavix until cleared by general surgery for resumption. Medically optimized for discharge at the discretion of Gen. surgery. Home medication reconciliation addressed with the exclusion of pain medications and Plavix. Thank you for allowing us to participate in the care of this pleasant patient. Do not hesitate to contact us with questions. Someone can be reached from the [facility] hospitalist group all hours of the day at [phone] or via [employer]. Objective - Vital Signs Vital signs: Vital Signs Temp 98.1 F 09/13/20 03:00 Pulse 79 09/13/20 03:00 Resp 17 09/12/20 14:00 BP 143/74 09/13/20 03:00 Pulse Ox 94 L 09/13/20 03:00 Intake & Output 02/01/21 02/02/21 02/02/21 18:59 06:59 18:59 Intake Total 2910 Output Total 5 500 Balance 2905 -500 Weight 103.9 kg Intake: IV 2650 Oral 260 Output: Urine 500 Estimated Blood Loss 5 Other: Voiding Method Urinal # Voids 2 - Labs CBC & Chem 7: 09/12/20 07:00 09/13/20 04:40 Labs: Abnormal Lab Results - Last 24 Hours (Table) 09/12/20 09/13/20 Range/Units 21:45 04:40 Creatinine 1.7 H (0.6-1.5) mg/dL Est GFR (CKD-EPI)AfAm 40.8 L (60.0-200.0) Est GFR (CKD-EPI)NonAf 35.2 L (60.0-200.0) Glucose 135 H (70-110) mg/dL Total Protein 5.0 L (6.2-8.2) g/dL Albumin 3.40 L (3.80-4.90) g/dL Urine Protein Trace H (Negative) Urine Ketones Trace H (Negative)
--- NOTE | 2020-09-13 14:10 | P.DS ---
<MisaeljacoboKajal - Last Filed: 09/13/20 14:07> Providers Expected date of discharge: 09/13/20 Hospital Course: Discharge diagnosis 1. Acute cholecystitis with percutaneous cholecystostomy tube 2. Pre-existing acute kidney injury, stage III 3. Hypertensive heart disease 4. Gastroesophageal reflux disease 5. Chronic antiplatelet therapy 6. Hyperlipidemia 7. Right upper quadrant peritoneal adhesions Hospital course The patient is a 89 year old male who more than 2-3 weeks ago was in the [facility] moving to the [facility]. He developed acute right upper quadrant abdominal pain and was hospitalized. he was diagnosed with cholecystitis at that time.As he was moving, patient wanted to avoid surgery and wanted a separate option of cholecystostomy drainage tube. He was then referred for surgical intervention in the local area. Prior to his outpatient appointment, patient developed right upper quadrant abdominal pain and was hospitalized recently. Additional diagnostic studies were performed including consultation to GI. Patient had been on Plavix where surgical intervention was ill advised due to high risk of bleeding. Patient now presents for surgical intervention. Patient is status post Robotic-assisted da Nereida Xi laparoscopic lysis of adhesions, Robotic-assisted da Nereida Xi laparoscopic cholecystectomy, multiport with FIREFLY, Removal of interventional radiology percutaneous cholecystostomy tube. Patient tolerated surgery well. His pain is controlled. He is tolerating diet. He is passing gas. He is urinating without difficulty. He is afebrile. He is ambulating. Patient is stable for discharge. [employer] note has been reviewed by physician. Signing provider agrees with the documented findings, assessment, and plan of care. Patient Condition at Discharge: Stable Plan - Discharge Summary Discharge Rx Participant: No New Discharge Prescriptions: New Acetaminophen Tab [Tylenol Tab] 1,000 mg PO Q6HR PRN #30 tablet PRN Reason: Pain Continue Montelukast [Singulair] 10 mg PO QAM hydrOXYzine HCL [Atarax] 25 - 50 mg PO HS PRN PRN Reason: Anxiety amLODIPine [Norvasc] 5 mg PO DAILY Omeprazole [PriLOSEC] 20 mg PO DAILY Atorvastatin [Lipitor] 40 mg PO DAILY Clopidogrel Bisulfate [Plavix] 75 mg PO DAILY #0 Discontinued Clopidogrel [Plavix] 75 mg PO DAILY hydrOXYzine HCL [Atarax] 25 - 50 mg PO HS PRN PRN Reason: Anxiety amLODIPine [Norvasc] 5 mg PO QAM Omeprazole 20 mg PO QAM Atorvastatin [Lipitor] 40 mg PO DAILY Amoxicillin/Potassium Clav [Augmentin 500-125 Tablet] 1 tab PO Q12HR 5 Days #10 tab Doxylamine Succinate [Unisom] 25 mg PO HS PRN PRN Reason: sleep Amoxic-Pot Clav 500-125 mg [Augmentin 500-125 mg] 1 tab PO Q12H Discharge Medication List Montelukast [Singulair] 10 mg PO QAM 09/05/20 [History] Acetaminophen Tab [Tylenol Tab] 1,000 mg PO Q6HR PRN #30 tablet 09/12/20 [Rx] Atorvastatin [Lipitor] 40 mg PO DAILY 09/12/20 [History] Omeprazole [PriLOSEC] 20 mg PO DAILY 09/12/20 [History] amLODIPine [Norvasc] 5 mg PO DAILY 09/12/20 [History] hydrOXYzine HCL [Atarax] 25 - 50 mg PO HS PRN 09/12/20 [History] Clopidogrel Bisulfate [Plavix] 75 mg PO DAILY #0 09/13/20 [Rx] Follow up Appointment(s)/Referral(s): Jesse Banuelos MD [REFERRING] - 1 Week (To establish for PCP in the area) Coni Quarles MD [STAFF PHYSICIAN] - 09/20/20 Gaudencio Matos DO [STAFF PHYSICIAN] - 4 Weeks Patient Instructions/Handouts: Acute Kidney Injury (DC), Laparoscopic Cholecystectomy (DC) Activity/Diet/Wound Care/Special Instructions: Avoid home medications except Singulair today. Resume home medications September 14. Okay to resume Plavix on September 14, 2020 Recommend low-fat diet for the next 2 days. No lifting over 10 pounds in 2 weeks until Sep. May shower. No bath tub soaks for two weeks until Sep Diet as tolerated. Use Tylenol scheduled for the next 24-48 hours for best pain relief. Use ice along incisions for the today to prevent swelling. Discharge Disposition: HOME SELF-CARE <Coni Quarles - Last Filed: 09/14/20 06:05> Providers Date of admission: 09/12/20 10:09 Attending physician: Coni Quarles Consults: 09/12/20 10:11 Consult Physician Urgent Consulting Provider: Gaudencio Matos Consult Reason/Comments: Acute on chronic kidney disease Do you want consulting provider notified?: Yes 09/12/20 18:28 Consult Physician Urgent Consulting Provider: Megan Burgos Consult Reason/Comments: Medical management Do you want consulting provider notified?: Yes Primary care physician: Stated None - Discharge Diagnosis(es) (1) Hypertensive heart and chronic kidney disease Status: Acute (2) Stage 3 chronic kidney disease due to benign hypertension Status: Acute (3) Antiplatelet or antithrombotic long-term use Status: Acute (4) Biliary drain displacement Status: Acute (5) Acute cholecystitis Status: Acute (6) Right upper quadrant pain Status: Acute Hospital Course: Please see additional documentation below POSTOPERATIVE DIAGNOSES: 1. Acute cholecystitis with percutaneous cholecystostomy tube 2. Pre-existing acute kidney injury, stage III 3. Hypertensive heart disease 4. Gastroesophageal reflux disease 5. Chronic antiplatelet therapy 6. Hyperlipidemia 7. Right upper quadrant peritoneal adhesions 8. Acute on chronic kidney injury due to hypertensive heart disease 9. History of cerebrovascular accident 10. History of pulmonary embolism COURSE: The patient is a 89 year-old male who presented with complicated acute cholecystitis with placement of percutaneous cholecystostomy tube at an outside institution. He was recently hospitalized for right upper quadrant abdominal pain however due to Plavix antiplatelet therapy, surgical intervention had been deferred. Patient also presented with worsening acute kidney injury on the day of surgery. Due to his pre-existing history of pulmonary embolism including worsening acute kidney injury due to dehydration, patient was admitted following his procedure as he has been deemed high risk. Consultation to nephrology was obtained. After IV fluid hydration, hi screatinine function improved from 1.9- 1.6. Medical consultation was also obtained due to patient's comorbidities. Prior to discharge, pain was well-controlled. He was tolerating diet. He was voiding spontaneously. He was happy with his surgical care. Procedures: OPERATION: Robotic-assisted da Nereida Xi laparoscopic lysis of adhesions Robotic-assisted da Nereida Xi laparoscopic cholecystectomy, multiport with FIREFLY Removal of interventional radiology percutaneous cholecystostomy tube ESTIMATED BLOOD LOSS: 5 mL. SPECIMENS REMOVED: Gallbladder. COMPLICATIONS: None. OPERATIVE FINDINGS: 1. Completely decompressed gallbladder with percutaneous tube at fundus 2. Moderate right upper quadrant peritoneal adhesions requiring lysis of adhesions using hook cautery
[2020-09-13 15:05] VITALS: BP 130/72; PULSE 90; TEMP 98.3
== END 2020-09-13 15:30 | disposition home or self-care (01) ==
LOC: OR 06:16 → 6NMEDSUR 10:09 → OR 10:09 → 6NMEDSUR 10:30
PROVIDERS: ADMIT Surgery Plastic and Reconstructive Surgery; ATTEND Surgery Plastic and Reconstructive Surgery
DX: K80.12 Calculus of gallbladder with acute and chronic cholecystitis without obstruction (principal); N17.9 Acute kidney failure, unspecified; K66.0 Peritoneal adhesions (postprocedural) (postinfection); I13.10 Hypertensive heart and chronic kidney disease without heart failure, with stage 1 through stage 4 chronic kidney disease, or unspecified chronic kidney disease; N18.30 Chronic kidney disease, stage 3 unspecified; E11.22 Type 2 diabetes mellitus with diabetic chronic kidney disease; K21.9 Gastro-esophageal reflux disease without esophagitis; E78.5 Hyperlipidemia, unspecified; Z43.8 Encounter for attention to other artificial openings; N13.9 Obstructive and reflux uropathy, unspecified; Z79.02 Long term (current) use of antithrombotics/antiplatelets; Z79.899 Other long term (current) drug therapy; Z86.711 Personal history of pulmonary embolism; Z86.73 Personal history of transient ischemic attack (TIA), and cerebral infarction without residual deficits; Z87.891 Personal history of nicotine dependence; Z82.49 Family history of ischemic heart disease and other diseases of the circulatory system; Z82.5 Family history of asthma and other chronic lower respiratory diseases
CPT/HCPCS: 94760; 86900; 86901; 88304; 80053 ×2; 85025; 86850; 81003; 76770; 47562; G0378 ×2; J1644; J1100; J2710; J0690; J2405; J2001; J3010; J1650; J1170 ×2; J0330; J2704